=== PATIENT | female | born 1950 | race Caucasian/White ===

== ENCOUNTER 2017-03-25 22:26 | Inpatient (IN) | payer OTHER, BC ==
[~2017-03-25] VITALS: Ht 165.1 cm; Wt 75.3 kg
--- NOTE | ~2017-03-25 | EKG ---
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: FARIDEH : 1950 Requested By: Kaiden Gagnon Order Number: [id number] MD: Mauri Ellis Measurements Intervals [place] Rate: 43 P: DC: QRS: 66 QRSD: 105 T: 47 QT: 420 QTc: 356 Interpretive Statements Probable junctional bradycardia Poor R wave progression Compared to ECG 02/11/2008 18:16:24 Sinus rhythm no longer present Electronically Signed On 03-30-2017 8:49:13 CDT by Mauri Ellis [email or web address] <ELECTRONICALLY SIGNED> By: Mauri Ellis MD, [facility] 03/30/17 0849 31 31 Mauri Ellis MD, FACC /EPI
--- NOTE | ~2017-03-25 | EKG ---
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
--- NOTE | ~2017-03-25 | EKG ---
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: ABAD : 1950 Requested By: Last Bal Order Number: [id number] MD: Mauri Ellis Measurements Intervals [place] Rate: 80 P: 64 IA: 210 QRS: 32 QRSD: 110 T: 36 QT: 375 QTc: 433 Interpretive Statements Sinus rhythm Poor R wave progression Compared to ECG 02/11/2008 18:16:24 Sinus rhythm is replaced probable junctional bradycardia Electronically Signed On 03-30-2017 9:12:02 CDT by Mauri Ellis [email or web address] <ELECTRONICALLY SIGNED> By: Mauri Ellis MD, [facility] 03/30/17 0912 55 Mauri Ellis MD, [facility] /EPI
--- NOTE | ~2017-03-25 | HC ---
[facility] [place] [address] CONSULTATION Name: JEISON PAVON Room #: 203-P [facility] IN .R.#: [id number] Admission: 03/25/17 Attend Phys: Last Bal MD Discharge: Date of : 48 Report #: [id number] THIS REPORT FOR: //name// CC: Haresh Pineda DATE OF SERVICE: 03/30/2017 PERSONAL PHYSICIAN: Gavin Pineda MD CHIEF COMPLAINT: Right axillary wound, status post incision and drainage. HISTORY OF PRESENT ILLNESS: This is a 67-year-old white female who presented through the Emergency Department for increasing shortness of breath and had a history of chronic obstructive pulmonary disease. The patient was also noted at the time to have a cellulitis of her right upper axillary region, which she had been taking outpatient Bactrim. The patient stated that the area started approximately 3-4 days prior to admission to the hospital as a small reddened area, was seen in urgent care and started on the antibiotics. The patient states even with the antibiotics she started having increasing pain, swelling and redness associated in her axillary region. The patient was found to have a large area of cellulitis on a CT scan, was taken to the operating room now x [address] Anne, and we have been asked to assist in the wound care at this time. The patient denies any other associated wounds. Nurses states that they noticed what appeared to be like a moisture-associated dermatitis in her gluteal region. PAST MEDICAL HISTORY: Significant for previous hysterectomy, tonsillectomy, diabetes, chronic obstructive pulmonary disease, prolapsed mitral valve. CURRENT MEDICATIONS: Multiple including IV antibiotics. DRUG ALLERGIES: None. SOCIAL HISTORY: The patient has a history of smoking, but states she thinks she might have quit. The patient is a slightly poor historian in regards to that, though denies alcohol and recreational drug use. FAMILY HISTORY: Not pertinent to current medical condition. REVIEW OF SYSTEMS: CONSTITUTIONAL: The patient denies fevers or chills. NEUROLOGIC: The patient had a generalized weakness on admission and still states she has mild weakness, but denies any isolated weakness in arms or legs. EYES: No complaints. [facility] [address] [place] [address] CONSULTATION Name: JEISON PAVON Room #: 203-P [facility] IN .R.#: [id number] Admission: 03/25/17 Attend Phys: Last Bal MD Discharge: Date of : 48 Report #: [id number] ENT: No complaints. CARDIAC: The patient denies chest pain, palpitations or peripheral edema. RESPIRATORY: The patient has chronic COPD with a chronic cough, nonproductive, with mild shortness of breath on exertion, and occasional wheezing. GASTROINTESTINAL: The patient denies nausea, vomiting or abdominal pain. GENITOURINARY: The patient denies urgency or frequency. MUSCULOSKELETAL: No complaints. SKIN: There is a surgical wound on the right axillary region as well as a moisture-associated dermatitis without open ulcerations in the gluteal region. PHYSICAL EXAMINATION: VITAL SIGNS: Stable. The patient is afebrile. GENERAL: This is an alert and oriented x 2, person and place, but not time, white female who appears to be in no acute distress, is on oxygen. HEENT: Normocephalic, atraumatic. Mucous membranes are somewhat dry. Pupils are round. Sclerae are white. NECK: Shows no JVD or masses. BACK: Nontender. LUNGS: Have scattered wheezes heard throughout. CHEST: Nontender. HEART: Regular with 2/6 systolic ejection murmur. ABDOMEN: Soft, nontender, without organomegaly. EXTREMITIES: The patient moves all extremities without difficulty. Bilateral heels are intact. There is no edema noted to the lower extremities. Distal pulses are intact. Evaluation of right axillary region reveals a 6 x 10 x 3.5 cm surgical wound, which is clean and granulating. There are no signs of any necrotic tissue. There is essentially no odor. There is serosanguineous drainage which is moderate, but once again without odor. Periwound itself is mildly erythematous and moderately tender, but with minimal warmth. There is no fluctuance in the periwound region. Distal neurovascular of the right upper extremity is intact. PELVIC: Evaluation of the gluteal region reveals blanchable erythema in the gluteal and perianal region without associated open ulcerations. NEUROLOGIC: Cranial nerves 2-12 are grossly intact. Motor and sensory grossly intact. LABORATORY DATA: White count 14.6, hemoglobin 8.2. Albumin is low at 2.3. IMPRESSION: 1. Right axillary abscess status post incision and drainage x 2 with methicillin-resistant Staphylococcus aureus positive. 2. Moisture-associated dermatitis in bilateral gluteal area. 3. Chronic obstructive pulmonary disease. 4. Protein-calorie malnutrition -- severe with albumin of 2.3. 5. Generalized debility. 6. Diabetes mellitus. [facility] [address] [place] [address] CONSULTATION Name: JEISON PAVON Room #: 203-P ADM IN M.Tyler.#: [id number] Admission: 03/25/17 Attend Phys: Last Bal MD Discharge: Date of : 48 Report #: [id number] PLAN: At this time, we will stop the wet to dry dressings and start packing the wound with Maxorb Ag and cover this with 4 x 4s and ABD daily. We will continue IV antibiotics per Infectious Disease orders. We will encourage the patient to maximize her oral protein and supplements for healing. We will continue all other current medications. We will continue to follow the patient while she is here. By: 11 01 Oli Simental MD /jhoan
--- NOTE | ~2017-03-25 | 2DMMODE ---
[facility] [address] [place] [address] 2 D/M-MODE ECHOCARDIOGRAM Name: JEISON PAVONN Room #: 203-P [facility] IN [facility].#: [id number] Admission: 03/25/17 Attend Phys: Last Bal MD Discharge: Date of : 48 Date of Service: 03/29/17 1604 Report #: [id number] THIS REPORT FOR: //name// APPROVED REPORT Study performed: 03/29/2017 15:04:59 EXAM: Comprehensive 2D, Doppler, and color-flow Echocardiogram Patient Location: Bedside Room #: 203 Status: routine BSA: 1.85 HR: 69 bpm BP: 154/97 mmHg Other Information Study Quality: Good Indications Diabetes Prem DESAI. 2D Dimensions RVDd: 39.64 mm LVEF(%): 63.47 (>50%) IVSd: 10.16 (7-11mm) LVOT Diam: 20.10 (18-24mm) LVDd: 45.18 mm PWd: 9.69 (7-11mm) Ascending Ao: 27.92 (22-36mm) LVDs: 29.68 (25-40mm) Aortic Root: 25.05 mm IVC: 27.00 mm Zeng's LVEF: 63.47 % Volumes Left Atrial Volume (Systole) Single Plane 4CH: 65.58 mL Single Plane 2CH: 74.09 mL LA ESV Index: 41.00 mL/m2 Aortic Valve AoV Peak Siddharth.: 1.58 m/s AO Peak Gr.: 9.93 mmHg LVOT Max P.51 mmHg LVOT Max V: 1.06 m/s SUNNY Vmax: 2.14 cm2 Mitral Valve E/A Ratio: 2.7 MV Decel. Time: 165.75 ms [facility] [place] [address] 2 D/M-MODE ECHOCARDIOGRAM Name: SAVANAHJEISON JO Room #: 203-P [facility] IN M.R.#: [id number] Admission: 03/25/17 Attend Phys: Last Bal MD Discharge: Date of : 48 Date of Service: 03/29/17 1604 Report #: [id number] MV E Max Siddharth.: 1.40 m/s MV A Siddharth.: 0.52 m/s MV PHT: 48.07 ms IVRT: 73.82 ms Pulmonary Valve PV Peak Siddharth.: 1.01 m/s PV Peak Gr.: 4.10 mmHg Pulmonary Vein P Vein S: 0.40 m/s P Vein A: 0.26 m/s P Vein D: 0.62 m/s P Vein A Dur.: 96.9 msec P Vein S/D Ratio: 0.65 Tricuspid Valve TR Peak Siddharth.: 3.62 m/s RAP Estimate: 10.00 mmHg TR Peak Gr.: 52.34 mmHg PA Pressure: 62.00 mmHg Left Ventricle The left ventricle is normal size. There is mild hypokinesis in the apical wall. There is normal left ventricular wall thickness. The left ventricular systolic function is normal. The left ventricular ejection fraction is within the normal range. LVEF is 50-55%. Right Ventricle The right ventricle is normal size. The right ventricular systolic function is normal. Atria Left atrium is dilated. Right atrium is dilated. Aortic Valve The aortic valve is normal in structure. No aortic regurgitation is present. There is no aortic valvular stenosis. Mitral Valve The mitral valve is normal in structure. Mild to moderate mitral regurgitation. No evidence of mitral valve stenosis. Tricuspid Valve The tricuspid valve is normal in structure. There is mild to moderate tricuspid regurgitation. pa press 60mmhg There is moderate pulmonary hypertension. Pulmonic Valve The pulmonary valve is normal in structure. [place] [address] 2 D/M-MODE ECHOCARDIOGRAM Name: JEISON PAVON Room #: 203-P [facility] IN ..#: [id number] Admission: 03/25/17 Attend Phys: Last Bal MD Discharge: Date of : 48 Date of Service: 03/29/17 1604 Report #: [id number] valvular regurgitation. Great Vessels The aortic root is normal in size. IVC is dilated and collapses <50% with inspiration. Pericardium There is no pericardial effusion. <Conclusion> There is normal left ventricular wall thickness. LVEF is 50-55%. Left atrium is dilated. Right atrium is dilated. The right ventricle is normal size. The aortic valve is normal in structure. Mild to moderate mitral regurgitation. There is mild to moderate tricuspid regurgitation. pa press 60mmhg There is moderate pulmonary hypertension. There is no pericardial effusion. <ELECTRONICALLY SIGNED> By: Wilfred Barry MD, FACC 03/29/17 1604 1604 1604 Wilfred Barry MD, FACC /INF
--- NOTE | ~2017-03-25 | HC ---
[facility] [place] [address] CONSULTATION Name: JEISON PAVON Room #: 203-P ADM IN M.R.#: [id number] Admission: 03/25/17 Attend Phys: Last Bal MD Discharge: Date of : 48 Report #: [id number] THIS REPORT FOR: //name// CC: Haresh Bal [facility] INFECTIOUS DISEASE CONSULTATION DATE OF CONSULTATION: 03/27/2017. ATTENDING PHYSICIAN: Dr. Bal. REASON FOR EVALUATION: Staphylococcus aureus septicemia, likely secondary to skin and soft tissue infection with abscess, right axilla, lateral lower thorax. HISTORY OF PRESENT ILLNESS: Chart reviewed, patient examined. This is a 67-year-old female with diabetes mellitus type 2, also has schizophrenia, detailed history are somewhat unclear, apparently had some dyspnea evening prior to admission, worsening hallucinations and was found to have juncture rhythm, did note inflammatory eruption involving the right axilla as well as the back, evaluation suggested there was a component of abscess, did undergo operative debridement, was found positive culture for Staphylococcus aureus both within the axillary specimen as well as two blood cultures. She does admit to some degree of pain. She is clearly still encephalopathic, has been started on piperacillin, tazobactam as well as vancomycin. ALLERGIES: None known. CURRENT MEDICATIONS: Include Haldol, aspirin, folic acid, fenofibrate, vancomycin, carbamazepine, methylprednisolone, ipratropium, albuterol inhaler, pregabalin, pantoprazole, insulin, p.r.n. analgesics. PAST MEDICAL HISTORY: As described above, diabetes mellitus type 2, history of rheumatoid arthritis, schizophrenia, some coronary artery disease, prolapse mitral valve, previous hysterectomy, tonsillectomy. SOCIAL HISTORY: Does smoked cigarettes, [id number] history. No illicit drug use. FAMILY HISTORY: No ethanol. Family history is noncontributory. REVIEW OF SYSTEMS: As above. PHYSICAL EXAMINATION: GENERAL: She is lethargic with mild to mildly encephalopathic, appears somewhat [facility] [address] [place] [address] CONSULTATION Name: JEISON PAVON Room #: [address] [place] [address] IN M.R.#: [id number] Admission: 03/25/17 Attend Phys: Last Bal MD Discharge: Date of : 48 Report #: [id number] chronically ill, in [id number] distress. VITAL SIGNS: Temperature 98, pulse 80, respirations 17, blood pressure 142/81. SKIN: Warm, dry, no rashes. HEENT: Unremarkable. NECK: Supple. LUNGS: Diminished breath sounds. HEART: Regular, right axilla has a surgical dressing in place, mild tenderness at the margins. ABDOMEN: Soft, nontender, nondistended. EXTREMITIES: No cyanosis. GENITOURINARY AND RECTAL: Deferred. LABORATORY DATA: As described above. Blood cultures with presumptive MRSA. Axillary culture with growth of Staphylococcus aureus. ABGs: pH 7.316, pCO2 of 39.6, pO2 84.4. Lactate of 1.04, that was on 5 liters. CBC: White cell count of 22.6, H and H 9.0 and 26.9, platelets of 388. Sodium 139, potassium , chloride 104, bicarbonate is 22, anion gap of 13. BUN and creatinine 26 and 1.1, that was actually down from 2.5, hepatitis screen was negative. The LFTs on admission did show AST of 371, ALT of 225, total bilirubin of 0.3, albumin of 2.5, total protein 7.2. X-ray showed possible infiltrate, right upper lung. ASSESSMENT: Staphylococcus aureus septicemia is a complication of skin and soft tissue infection with axillary abscess. Continue the vancomycin for presumptive MRSA, there is question of possible pneumonitis as well. She is clearly improved from a renal standpoint, discuss with , increasing the dose of vancomycin better reflect. We will repeat blood cultures as well. <ELECTRONICALLY SIGNED> By: Jorge Dominguez MD 03/27/17 1632 0824 0908 Jorge Dominguez MD /nt
--- NOTE | ~2017-03-25 | S ---
[facility] [place] [address] SURGICAL PATH RPT PROCEDURE Name: JEISON SWENSON Room #: 203-P ADM IN M.R.#: [id number] Admission: 03/25/17 Date of : 48 Discharge: Report #: [id number] Path Case #: [id number] PATHOLOGY REPORT COLLECTION DATE: 03/26/2017 RECEIVED DATE: 03/26/2017 SUBMITTING PHYS: Dr. Haresh Anne, DO OTHER PHYS: Dr. Last Pineda SPECIMEN(S) RECEIVED: A.Right axillary mass * * * * * * * * * * * * FINAL DIAGNOSIS: Right axillary mass, excision: - Consistent with an abscess. - Overlying squamous epithelium showing reactive changes. (IUV:db; 03/29/2017) PATHOLOGIST: Susy Irby M.D. REPORT ELECTRONICALLY SIGNED BY: Susy Irby M.D. DATE/TIME: 03/29/2017 16:37 * * * * * * * * * * * * GROSS PATHOLOGY: Received in formalin, labeled "Umu Swenson, right axillary mass" is an unoriented ellipse of white-alvarez skin and underlying pink yellow lobulated fibroadipose tissue measuring 9.0 x 2.3 cm, and excised to a maximum depth of 3.0 cm. The skin surface is white-alvarez and grossly unremarkable. The specimen is serially sectioned to reveal multiple pink-white soft cystic areas in the deep soft tissue ranging from 0.7-1.6 cm in greatest dimension. A claims customer service representative section of the specimen is submitted in cassette A1. ([facility]; 03/27/2017) CLINICAL HISTORY: Abscess right axilla INITIAL CPT CODE(S): 98117 Professional services performed by [facility] [address] [place] [address] [facility] [address] [place] [address] SURGICAL PATH RPT PROCEDURE Name: JEISON SWENSONN Room #: 203-P ADM IN M.R.#: [id number] Admission: 03/25/17 Date of : 48 Discharge: Report #: [id number] Path Case #: [id number] Technical services performed by [facility] at [address] [place] [address], [address], [place] [address]. [facility] [address] [place] [address] PHONE: [phone] DIRECTOR: Tim Win M.D. * * * END OF REPORT * * *
[~2017-03-25 22:26] MED LIST: AMOXICILLIN 50500 MG PO; ASPIR 8181 MG PO; ATENOLOL 50MG T50 M1 PO; ATORVASTATIN CA40 MG PO; CARBAMAZEPINE200 M2 PO; COMPAZINE10 MG; FENOFIBRATE160 MG PO; FLEXERIL; FOLIC ACID1 MG PO; HALOPERIDOL 2 MG2 M1; IBUPROFEN 800800 M1 PO; IMDUR 30 MG TAB30 M1 PO; LYRICA 75 MG CA75 MG; METFORMIN HCL500 MG PO; NITRO-DUR1 EAC1; NORCO 10-325 T1 EACH PO; NORVASC5 MG PO; OMEPRAZOLE40 MG; PREDNISONE 5 MG5 M1; RESTORIL30 MG PO; TENORMIN50 MG PO; VITAMIN D 5050000 I1 PO; XANAX 0.5 MG0.5 MG PO
[2017-03-25 22:27] VITALS: BP 125/44
[2017-03-25 23:11] LABS: HEMATOCRIT 29.5 % (37.0-47.0); HEMOGLOBIN 9.8 gm/dL (12.0-15.0); MCHC 33.3 g/dL (28.0-37.0); MCV 90.1 fL (80.0-100.0); PLATELET COUNT 375 thou/uL (150-400); RBC 3.27 mil/uL (4.20-5.00); RDW 15.8 % (10.5-14.5)
[2017-03-25 23:17] LABS: MANUAL DIFF YES
[2017-03-25 23:21] LABS: ANION GAP 15 mmol/L (7-16); BUN 50 mg/dL (7-18); CALCIUM 9.6 mg/dL (8.5-10.1); CHLORIDE 92 mmol/L (98-107); CO2 19 mmol/L (21-32); CREATININE 3.1 mg/dL (0.6-1.0); GLUCOSE 125 mg/dL (74-106); POTASSIUM 5.1 mmol/L (3.5-5.1); SODIUM 126 mmol/L (136-145)
[2017-03-25 23:27] LABS: ALBUMIN 2.5 g/dL (3.4-5.0); ALKALINE PHOSPHATASE 70 U/L (46-116); MAGNESIUM 1.9 mg/dL (1.8-2.4); SGOT 371 U/L (15-37); SGPT 225 U/L (30-65); TOTAL BILIRUBIN 0.3 mg/dL (<0.1-1.0); TOTAL PROTEIN 7.2 g/dL (6.4-8.2); TROPONIN-I < 0.04 ng/mL (<0.04-0.07)
[2017-03-25 23:37] LABS: ABG SAMPLE TYPE ARTERIAL; BE(vivo) -9.3 mmol/L (-2 to +3); HCO3 16.6 mmol/L (22.0-26.0); LACTATE 2.43 mmol/L (0.5-2.0); O2(CT) 13.4 mL/dL (15.0-23.0); O2Hb 91.2 % (92.0-98.0); PO2 82.9 mmHg (80.0-100.0); tCO2 17.7 mmol/L (24.0-30.0)
[2017-03-25 23:39] LABS: pH 7.282 (7.360-7.450)
[2017-03-25 23:43] LABS: STICK SITE L.RADIAL
[2017-03-26] VITALS (8 sets, daily range): BP systolic 118–156; BP diastolic 38–90
[2017-03-26 00:13] LABS: URINE BILIRUBIN NEGATIVE (Negative); URINE BLOOD NEGATIVE (Negative); URINE COLOR YELLOW; URINE GLUCOSE-RANDOM* NEGATIVE (Negative); URINE KETONES NEGATIVE (Negative); URINE LEUKOCYTES-REFLEX TRACE (Negative); URINE PROTEIN (DIPSTICK) NEGATIVE (Negative); URINE SPECIFIC GRAVITY 1.015 (1.003-1.035); URINE UROBILINOGEN 0.2 E.U./dl (0.2-1.0)
[2017-03-26 00:21] LABS: AMP/METHAMP Negative (Negative); BARBITURATES Negative (Negative); BENZODIAZEPINES POSITIVE (Negative); COCAINE Negative (Negative); METHADONE Negative (Negative); OPIATES POSITIVE (Negative); PCP Negative (Negative); THC Negative (Negative)
[2017-03-26 00:56] LABS: ABSOLUTE NEUTROPHILS 21.2 thou/uL (1.4-8.2); ANISOCYTOSIS SLIGHT; TOTAL CELL COUNT 100
[2017-03-26] MEDS ORDERED: PREDNISONE 5 MG5 M1 PO (03:42)
[2017-03-26] MEDS ORDERED: LASIX 20 MG TAB20 MG PO (03:48)
[2017-03-26 06:43] LABS: HEMATOCRIT 28.2 % (37.0-47.0); HEMOGLOBIN 9.6 gm/dL (12.0-15.0); MCH 30.7 pg (26.0-34.0); MCHC 33.9 g/dL (28.0-37.0); MCV 90.5 fL (80.0-100.0); RBC 3.12 mil/uL (4.20-5.00); RDW 15.9 % (10.5-14.5); WBC 26.3 thou/uL (4.0-11.0)
[2017-03-26 06:52] LABS: CALCIUM 8.4 mg/dL (8.5-10.1); CREATININE 2.5 mg/dL (0.6-1.0); POTASSIUM 4.6 mmol/L (3.5-5.1)
[2017-03-26 09:35] LABS: APTT 26.8 Seconds (24.5-32.8); INR 1.1; PROTIME 11.4 Seconds (9.3-11.4)
[2017-03-26 10:02] LABS: % SATURATION 11 % (20-39); IRON 28 ug/dL (50-170); TIBC 252 ug/dL (250-450); UIBC 224 ug/dL
[2017-03-26 21:07] LABS: HEPATITIS C VIRUS AB <0.1 (0.0-0.9)
[2017-03-27 03:58] VITALS: BP 154/69
[2017-03-27 04:20] LABS: HEMATOCRIT 26.9 % (37.0-47.0); MCH 29.7 pg (26.0-34.0); MCHC 33.5 g/dL (28.0-37.0); MCV 88.6 fL (80.0-100.0); RBC 3.03 mil/uL (4.20-5.00); RDW 15.9 % (10.5-14.5); WBC 22.6 thou/uL (4.0-11.0)
[2017-03-27 04:31] LABS: CALCIUM 8.7 mg/dL (8.5-10.1); POTASSIUM 3.8 mmol/L (3.5-5.1)
[2017-03-27 04:34] LABS: CREATININE 1.1 mg/dL (0.6-1.0)
[2017-03-27 05:22] LABS: ABG SAMPLE TYPE ARTERIAL; BE(vivo) -5.9 mmol/L (-2 to +3); HCO3 19.8 mmol/L (22.0-26.0); LACTATE 1.04 mmol/L (0.5-2.0); O2(CT) 15.2 mL/dL (15.0-23.0); O2Hb 93.7 % (92.0-98.0); PCO2 39.6 mmHg (35.0-45.0); PO2 84.4 mmHg (80.0-100.0); sO2 95.6 % (92.0-98.0)
[2017-03-27 05:23] LABS: STICK SITE RRA
[2017-03-27 05:25] LABS: pH 7.316 (7.360-7.450)
[2017-03-27 07:07] VITALS: BP 142/81
[2017-03-27 12:05] VITALS: BP 166/78
[2017-03-27 15:28] VITALS: BP 168/81
[2017-03-27 19:55] VITALS: BP 150/66
[2017-03-28 04:29] LABS: HEMOGLOBIN 8.2 gm/dL (12.0-15.0); MCH 30.1 pg (26.0-34.0); MCHC 33.9 g/dL (28.0-37.0); MCV 88.6 fL (80.0-100.0); RBC 2.71 mil/uL (4.20-5.00); RDW 15.8 % (10.5-14.5); WBC 19.4 thou/uL (4.0-11.0)
[2017-03-28 04:47] LABS: CALCIUM 8.6 mg/dL (8.5-10.1); CREATININE 0.7 mg/dL (0.6-1.0); POTASSIUM 3.3 mmol/L (3.5-5.1)
[2017-03-28 04:51] VITALS: BP 167/81
[2017-03-28 07:31] VITALS: BP 171/84
[2017-03-28 11:49] VITALS: BP 156/74
[2017-03-28 16:22] VITALS: BP 152/70
[2017-03-28 19:31] VITALS: BP 165/90
[2017-03-29 02:54] LABS: HEMATOCRIT 25.4 % (37.0-47.0); HEMOGLOBIN 8.8 gm/dL (12.0-15.0); MCH 30.3 pg (26.0-34.0); MCHC 34.5 g/dL (28.0-37.0); MCV 87.9 fL (80.0-100.0); RBC 2.89 mil/uL (4.20-5.00); RDW 15.8 % (10.5-14.5); WBC 15.5 thou/uL (4.0-11.0)
[2017-03-29 02:59] VITALS: BP 170/95
[2017-03-29 03:01] LABS: CALCIUM 8.6 mg/dL (8.5-10.1); CREATININE 0.6 mg/dL (0.6-1.0); POTASSIUM 3.3 mmol/L (3.5-5.1)
[2017-03-29 07:28] VITALS: BP 154/92
[2017-03-29 12:15] VITALS: BP 150/84
[2017-03-29 19:41] VITALS: BP 156/80
[2017-03-29 23:38] VITALS: BP 184/98
[2017-03-30 03:47] VITALS: BP 162/78
[2017-03-30 07:36] VITALS: BP 168/95
[2017-03-30 10:14] LABS: HEMATOCRIT 23.9 % (37.0-47.0); HEMOGLOBIN 8.2 gm/dL (12.0-15.0); MCH 30.1 pg (26.0-34.0); MCHC 34.2 g/dL (28.0-37.0); RBC 2.72 mil/uL (4.20-5.00); WBC 14.6 thou/uL (4.0-11.0)
[2017-03-30 12:29] VITALS: BP 144/77
[2017-03-30 20:40] VITALS: BP 115/73; BP 115/731
[2017-03-31] VITALS (7 sets, daily range): BP systolic 160–169; BP diastolic 80–88
[2017-03-31 04:06] LABS: HEMATOCRIT 25.9 % (37.0-47.0); HEMOGLOBIN 8.6 gm/dL (12.0-15.0); MCH 29.7 pg (26.0-34.0); MCHC 33.3 g/dL (28.0-37.0); RBC 2.91 mil/uL (4.20-5.00); RDW 16.2 % (10.5-14.5); WBC 14.7 thou/uL (4.0-11.0)
[2017-03-31 04:14] LABS: CALCIUM 8.3 mg/dL (8.5-10.1); CREATININE 0.5 mg/dL (0.6-1.0); POTASSIUM 3.2 mmol/L (3.5-5.1)
[2017-04-01] VITALS (8 sets, daily range): BP systolic 135–181; BP diastolic 86–94
[2017-04-01 07:00] LABS: MAGNESIUM 1.2 mg/dL (1.8-2.4); POTASSIUM 3.8 mmol/L (3.5-5.1)
[2017-04-01] MEDS ORDERED: MUCINEX TA600 MG/TA1 PO (10:01)
== END 2017-04-01 13:50 | disposition home health service (06) | DRG 853 ==
LOC: ER 22:26 → EROBS 23:38 → 2N 23:38
PROVIDERS: Emergency Medicine; Hospitalist; Nurse Practitioner Acute Care; Surgery
PROC: 0JB60ZZ Excision of Chest Subcutaneous Tissue and Fascia, Open Approach (ICD-10-PCS; principal; 2017-03-26)
DX: A41.02 Sepsis due to Methicillin resistant Staphylococcus aureus (principal); J18.9 Pneumonia, unspecified organism; E43 Unspecified severe protein-calorie malnutrition; G92 Toxic encephalopathy; L02.411 Cutaneous abscess of right axilla; N17.9 Acute kidney failure, unspecified; E87.1 Hypo-osmolality and hyponatremia; J44.0 Chronic obstructive pulmonary disease with (acute) lower respiratory infection; L03.111 Cellulitis of right axilla; F17.210 Nicotine dependence, cigarettes, uncomplicated; D64.9 Anemia, unspecified; D89.9 Disorder involving the immune mechanism, unspecified; R74.0 Nonspecific elevation of levels of transaminase and lactic acid dehydrogenase [LDH]; I25.10 Atherosclerotic heart disease of native coronary artery without angina pectoris; M06.9 Rheumatoid arthritis, unspecified; E11.620 Type 2 diabetes mellitus with diabetic dermatitis; K21.9 Gastro-esophageal reflux disease without esophagitis; I10 Essential (primary) hypertension; F20.9 Schizophrenia, unspecified; T44.7X1A Poisoning by beta-adrenoreceptor antagonists, accidental (unintentional), initial encounter; Y92.89 Other specified places as the place of occurrence of the external cause; Z90.710 Acquired absence of both cervix and uterus; Z68.23 Body mass index [BMI] 23.0-23.9, adult; Z82.49 Family history of ischemic heart disease and other diseases of the circulatory system; Z80.9 Family history of malignant neoplasm, unspecified; Z79.52 Long term (current) use of systemic steroids
CPT/HCPCS: 10081; 27000; 50010; 50101; 50386; 50403; 53078; 56639; 62110; 62900; 70005

== ENCOUNTER → 2017-04-02 | Outpatient (CLI) | payer OTHER, BC ==
[~2017-04-02] MED LIST changes: +LASIX 20 MG TAB20 MG PO; +MUCINEX TA600 MG/TA1 PO; +PREDNISONE 5 MG5 M1 PO
[2017-04-02 12:15] VITALS: BP 124/57
== END ==
LOC: OPONC 07:48
DX: L02.213 Cutaneous abscess of chest wall (principal)
CPT/HCPCS: 95000

== ENCOUNTER → 2017-04-03 | Outpatient (CLI) | payer OTHER, BC | LOC: OPONC 04:27 | DX: L02.213 Cutaneous abscess of chest wall (principal) | CPT/HCPCS: 95000 ==

== ENCOUNTER → 2017-04-06 | Outpatient (CLI) | payer OTHER, BC ==
[2017-04-06 10:11] LABS: HEMATOCRIT 26.5 % (37.0-47.0); HEMOGLOBIN 8.7 gm/dL (12.0-15.0); MCH 29.8 pg (26.0-34.0); MCV 90.2 fL (80.0-100.0); RBC 2.93 mil/uL (4.20-5.00); WBC 13.1 thou/uL (4.0-11.0)
[2017-04-06 10:25] LABS: ALBUMIN 2.4 g/dL (3.4-5.0); CREATININE 1.1 mg/dL (0.6-1.0); POTASSIUM 3.7 mmol/L (3.5-5.1); TOTAL BILIRUBIN 0.2 mg/dL (<0.1-1.0); TOTAL PROTEIN 6.3 g/dL (6.4-8.2)
[2017-04-06 11:00] VITALS: BP 110/61
== END ==
LOC: OPONC 08:00
PROVIDERS: Specialist
DX: L02.213 Cutaneous abscess of chest wall (principal); B95.62 Methicillin resistant Staphylococcus aureus infection as the cause of diseases classified elsewhere
CPT/HCPCS: 95000

== ENCOUNTER → 2017-04-07 | Outpatient (CLI) | payer OTHER, BC ==
[2017-04-07 09:50] VITALS: BP 106/58
== END ==
LOC: OPONC 08:41
DX: L02.213 Cutaneous abscess of chest wall (principal); A49.02 Methicillin resistant Staphylococcus aureus infection, unspecified site
CPT/HCPCS: 95000

== ENCOUNTER → 2017-04-07 | Outpatient (CLI) | payer OTHER, BC | LOC: HYPER 06:52 | DX: T81.89XD Other complications of procedures, not elsewhere classified, subsequent encounter (principal); L02.411 Cutaneous abscess of right axilla; R00.1 Bradycardia, unspecified; J44.9 Chronic obstructive pulmonary disease, unspecified; E11.42 Type 2 diabetes mellitus with diabetic polyneuropathy; I10 Essential (primary) hypertension; K21.9 Gastro-esophageal reflux disease without esophagitis; I25.10 Atherosclerotic heart disease of native coronary artery without angina pectoris; M06.9 Rheumatoid arthritis, unspecified; F17.210 Nicotine dependence, cigarettes, uncomplicated; Z90.710 Acquired absence of both cervix and uterus; Y83.8 Other surgical procedures as the cause of abnormal reaction of the patient, or of later complication, without mention of misadventure at the time of the procedure ==

== ENCOUNTER → 2017-04-08 | Outpatient (CLI) | payer OTHER, BC ==
[2017-04-08 13:14] VITALS: BP 117/64
== END ==
LOC: OPONC 08:20
DX: L02.213 Cutaneous abscess of chest wall (principal); A49.02 Methicillin resistant Staphylococcus aureus infection, unspecified site
CPT/HCPCS: 95000

== ENCOUNTER → 2017-04-09 | Outpatient (CLI) | payer OTHER, BC ==
[2017-04-09 10:00] VITALS: BP 113/63
== END ==
LOC: OPONC 07:47
DX: L02.213 Cutaneous abscess of chest wall (principal); B95.62 Methicillin resistant Staphylococcus aureus infection as the cause of diseases classified elsewhere
CPT/HCPCS: 95000

== ENCOUNTER → 2017-04-10 | Outpatient (CLI) | payer OTHER, BC | LOC: OPONC 06:25 | DX: L02.213 Cutaneous abscess of chest wall (principal); B95.62 Methicillin resistant Staphylococcus aureus infection as the cause of diseases classified elsewhere | CPT/HCPCS: 95000 ==

== ENCOUNTER → 2017-04-11 | Outpatient (CLI) | payer OTHER, BC | LOC: OPONC 06:27 | DX: L02.213 Cutaneous abscess of chest wall (principal); B95.62 Methicillin resistant Staphylococcus aureus infection as the cause of diseases classified elsewhere | CPT/HCPCS: 95000 ==

== ENCOUNTER → 2017-04-12 | Outpatient (CLI) | payer OTHER, BC ==
[2017-04-12 14:10] VITALS: BP 118/63
== END ==
LOC: OPONC 08:28
DX: L02.213 Cutaneous abscess of chest wall (principal); B95.62 Methicillin resistant Staphylococcus aureus infection as the cause of diseases classified elsewhere
CPT/HCPCS: 95000

== ENCOUNTER → 2017-04-13 | Outpatient (CLI) | payer OTHER, BC ==
[2017-04-13 09:45] VITALS: BP 129/72
[2017-04-13 10:02] LABS: HEMATOCRIT 27.3 % (37.0-47.0); HEMOGLOBIN 9.1 gm/dL (12.0-15.0); MCH 30.4 pg (26.0-34.0); MCHC 33.5 g/dL (28.0-37.0); MCV 90.7 fL (80.0-100.0); RBC 3.01 mil/uL (4.20-5.00); RDW 16.9 % (10.5-14.5); WBC 11.8 thou/uL (4.0-11.0)
[2017-04-13 10:14] LABS: % SATURATION 14 % (20-39); ALBUMIN 2.8 g/dL (3.4-5.0); ALKALINE PHOSPHATASE 45 U/L (46-116); ANION GAP 8 mmol/L (7-16); BUN 21 mg/dL (7-18); CHLORIDE 102 mmol/L (98-107); CHOLESTEROL 126 mg/dL (<200); CO2 25 mmol/L (21-32); CREATININE 0.9 mg/dL (0.6-1.0); GLUCOSE 97 mg/dL (74-106); HDL CHOLESTEROL 48 mg/dL (>40); IRON 59 ug/dL (50-170); LDL CHOLESTEROL 58 mg/dL (<100); POTASSIUM 4.6 mmol/L (3.5-5.1); SGOT 27 U/L (15-37); SGPT 27 U/L (30-65); SODIUM 135 mmol/L (136-145); TC:HDL 2.6 Ratio (Not establshd); TIBC 416 ug/dL (250-450); TOTAL BILIRUBIN 0.3 mg/dL (<0.1-1.0); TOTAL PROTEIN 6.6 g/dL (6.4-8.2); TRIGLYCERIDE 101 mg/dL (<150); UIBC 357 ug/dL; VLDL 20 mg/dL (<40)
[2017-04-14 04:12] LABS: GLYCOHEMOGLOBIN (HGB A1C) 5.7 % (4.8-5.6)
== END ==
LOC: OPONC 08:07
PROVIDERS: Internal Medicine Rheumatology
DX: L02.213 Cutaneous abscess of chest wall (principal); B95.62 Methicillin resistant Staphylococcus aureus infection as the cause of diseases classified elsewhere
CPT/HCPCS: 95000

== ENCOUNTER → 2017-04-14 | Outpatient (CLI) | payer OTHER, BC ==
[2017-04-14 10:00] VITALS: BP 106/50
== END ==
LOC: OPONC 07:03
DX: L02.213 Cutaneous abscess of chest wall (principal); A49.02 Methicillin resistant Staphylococcus aureus infection, unspecified site
CPT/HCPCS: 95000

== ENCOUNTER → 2017-04-15 | Outpatient (CLI) | payer OTHER, BC ==
[2017-04-15 09:45] VITALS: BP 102/54
[2017-04-15 10:45] VITALS: BP 94/48
== END ==
LOC: OPONC 06:24
DX: D50.9 Iron deficiency anemia, unspecified (principal)
CPT/HCPCS: 95000

== ENCOUNTER → 2017-04-16 | Outpatient (CLI) | payer OTHER, BC ==
[~2017-04-16] MED LIST changes: +BACTRIM DS TAB1 EACH PO
[2017-04-16 11:46] VITALS: BP 93/47
== END ==
LOC: OPONC 06:29
DX: L02.213 Cutaneous abscess of chest wall (principal); B95.62 Methicillin resistant Staphylococcus aureus infection as the cause of diseases classified elsewhere
CPT/HCPCS: 95000

== ENCOUNTER → 2017-04-17 | Outpatient (CLI) | payer OTHER, BC | LOC: OPONC | DX: L02.213 Cutaneous abscess of chest wall (principal); B95.62 Methicillin resistant Staphylococcus aureus infection as the cause of diseases classified elsewhere | CPT/HCPCS: 95000 ==

== ENCOUNTER → 2017-04-18 | Outpatient (CLI) | payer OTHER, BC | LOC: OPONC | DX: L02.213 Cutaneous abscess of chest wall (principal); B95.62 Methicillin resistant Staphylococcus aureus infection as the cause of diseases classified elsewhere | CPT/HCPCS: 95000 ==

== ENCOUNTER → 2017-04-20 | Outpatient (CLI) | payer OTHER, BC ==
[2017-04-20 12:05] VITALS: BP 114/65
[2017-04-20 12:22] LABS: HEMATOCRIT 26.6 % (37.0-47.0); HEMOGLOBIN 9.1 gm/dL (12.0-15.0); MCH 30.9 pg (26.0-34.0); MCHC 34.2 g/dL (28.0-37.0); MCV 90.3 fL (80.0-100.0); RBC 2.95 mil/uL (4.20-5.00); RDW 17.1 % (10.5-14.5); WBC 13.6 thou/uL (4.0-11.0)
[2017-04-20 12:37] LABS: ALBUMIN 2.7 g/dL (3.4-5.0); CALCIUM 9.2 mg/dL (8.5-10.1); POTASSIUM 4.5 mmol/L (3.5-5.1); TOTAL BILIRUBIN 0.2 mg/dL (<0.1-1.0)
[2017-04-20 13:25] VITALS: BP 129/66
== END ==
LOC: OPONC
PROVIDERS: Specialist
DX: L02.213 Cutaneous abscess of chest wall (principal); B95.62 Methicillin resistant Staphylococcus aureus infection as the cause of diseases classified elsewhere
CPT/HCPCS: 95000

== ENCOUNTER → 2017-04-20 | Outpatient (CLI) | payer OTHER, BC | LOC: HYPER | DX: T81.89XA Other complications of procedures, not elsewhere classified, initial encounter (principal); R00.1 Bradycardia, unspecified; J44.9 Chronic obstructive pulmonary disease, unspecified; D50.8 Other iron deficiency anemias; I10 Essential (primary) hypertension; F20.9 Schizophrenia, unspecified; K21.9 Gastro-esophageal reflux disease without esophagitis; I25.10 Atherosclerotic heart disease of native coronary artery without angina pectoris; M06.9 Rheumatoid arthritis, unspecified; M19.90 Unspecified osteoarthritis, unspecified site; Z87.01 Personal history of pneumonia (recurrent); F17.210 Nicotine dependence, cigarettes, uncomplicated; Y92.89 Other specified places as the place of occurrence of the external cause; Y83.8 Other surgical procedures as the cause of abnormal reaction of the patient, or of later complication, without mention of misadventure at the time of the procedure ==

== ENCOUNTER → 2017-04-21 | Outpatient (CLI) | payer OTHER, BC ==
[2017-04-21 08:10] VITALS: BP 93/50
[2017-04-21 09:57] LABS: URINE BILIRUBIN NEGATIVE (Negative); URINE BLOOD NEGATIVE (Negative); URINE COLOR YELLOW; URINE GLUCOSE-RANDOM* NEGATIVE (Negative); URINE KETONES NEGATIVE (Negative); URINE PROTEIN (DIPSTICK) NEGATIVE (Negative); URINE UROBILINOGEN 0.2 E.U./dl (0.2-1.0)
[2017-04-21 10:02] LABS: URINE LEUKOCYTES-REFLEX 2+ (Negative)
[2017-04-21 10:14] LABS: CASTS None Seen /LPF (None Seen); SQUAMOUS None Seen /LPF (0-3); URINE WBC-REFLEX >25 Many /HPF (0-5)
[2017-04-21 10:15] LABS: CRYSTALS None Seen /LPF (None Seen); URINE RBC None Seen /HPF (0-2)
== END ==
LOC: OPONC
PROVIDERS: Specialist
DX: L02.213 Cutaneous abscess of chest wall (principal); B95.62 Methicillin resistant Staphylococcus aureus infection as the cause of diseases classified elsewhere
CPT/HCPCS: 95000

== ENCOUNTER → 2017-04-22 | Outpatient (CLI) | payer OTHER, BC ==
[2017-04-22 12:45] VITALS: BP 113/53
== END ==
LOC: OPONC 01:47
DX: A49.02 Methicillin resistant Staphylococcus aureus infection, unspecified site (principal); L02.213 Cutaneous abscess of chest wall
CPT/HCPCS: 95000

== ENCOUNTER → 2017-04-23 | Outpatient (CLI) | payer OTHER, BC ==
[2017-04-23 14:37] VITALS: BP 111/56
== END ==
LOC: OPONC 03:34 → NUC 14:44 → OPONC 14:54
DX: A49.02 Methicillin resistant Staphylococcus aureus infection, unspecified site (principal); L02.213 Cutaneous abscess of chest wall
CPT/HCPCS: 95000

== ENCOUNTER → 2017-04-24 | Outpatient (CLI) | payer OTHER, BC | LOC: OPONC 05:02 | DX: A49.02 Methicillin resistant Staphylococcus aureus infection, unspecified site (principal); L02.213 Cutaneous abscess of chest wall | CPT/HCPCS: 95000 ==

== ENCOUNTER → 2017-04-25 | Outpatient (CLI) | payer OTHER, BC | LOC: OPONC 05:05 | DX: A49.02 Methicillin resistant Staphylococcus aureus infection, unspecified site (principal); L02.213 Cutaneous abscess of chest wall | CPT/HCPCS: 95000 ==

== ENCOUNTER → 2017-04-28 | Outpatient (CLI) | payer OTHER, BC ==
[2017-04-28 09:05] VITALS: BP 98/53
[2017-04-28 09:25] LABS: HEMATOCRIT 27.7 % (37.0-47.0); HEMOGLOBIN 9.5 gm/dL (12.0-15.0); MCH 31.3 pg (26.0-34.0); MCHC 34.5 g/dL (28.0-37.0); MCV 90.8 fL (80.0-100.0); PLATELET COUNT 369 thou/uL (150-400); RBC 3.05 mil/uL (4.20-5.00); RDW 17.1 % (10.5-14.5); WBC 12.6 thou/uL (4.0-11.0)
[2017-04-28 09:27] LABS: MANUAL DIFF YES
[2017-04-28 09:41] LABS: ALBUMIN 2.8 g/dL (3.4-5.0); CALCIUM 8.9 mg/dL (8.5-10.1); CREATININE 1.2 mg/dL (0.6-1.0); POTASSIUM 4.5 mmol/L (3.5-5.1); TOTAL BILIRUBIN 0.2 mg/dL (<0.1-1.0); TOTAL PROTEIN 6.7 g/dL (6.4-8.2)
[2017-04-28 09:50] LABS: ABSOLUTE NEUTROPHILS 11.2 thou/uL (1.4-8.2); PLATELET ESTIMATE NORMAL; TOTAL CELL COUNT 100
== END ==
LOC: OPONC 04-27 00:25
PROVIDERS: Specialist
DX: A49.02 Methicillin resistant Staphylococcus aureus infection, unspecified site (principal); L02.213 Cutaneous abscess of chest wall
CPT/HCPCS: 95000

== ENCOUNTER 2017-04-30 12:34 | Inpatient (IN) | payer OTHER, BC ==
[~2017-04-30] VITALS: Ht 165.1 cm; Wt 74.6 kg
--- NOTE | ~2017-04-30 | HC ---
[facility] [place] [address] CONSULTATION Name: JEISON PAVON Room #: 406-P [facility] IN ..#: [id number] Admission: 04/30/17 Attend Phys: Allie Long MD Discharge: 05/04/17 Date of : 48 Report #: [id number] THIS REPORT FOR: //name// CC: Gavin Lnog DATE OF SERVICE: 05/03/2017 CHIEF COMPLAINT: Axillary surgical wound. HISTORY OF PRESENT ILLNESS: This is a 67-year-old female patient who has been recently readmitted to the hospital. She is familiar to me from previous hospitalization as well as from the outpatient setting with a surgical wound to her right axillary region following incision and drainage of abscess. She is admitted with severe right hip pain that she believes is related to sciatica. She states that that is feeling better and she is starting to be able to move about in her room. PAST MEDICAL HISTORY: Positive for history of ankylosing spondylitis, history of a right axillary abscess and MRSA bacteremia, mitral valve prolapse, type 2 diabetes mellitus, IgG deficiency, spinal stenosis, schizophrenia, gastroesophageal reflux disease and coronary artery disease. MEDICATIONS: Reviewed including prednisone, atenolol, alprazolam, ibuprofen, aspirin, folic acid, amlodipine, fenofibrate, atorvastatin, Isordil, pantoprazole, nicotine patch. FAMILY HISTORY: Noncontributory. SOCIAL HISTORY: The patient does smoke cigarettes. No alcohol use. REVIEW OF SYSTEMS: CONSTITUTIONAL: Denies fever, chills, weight loss. NEUROLOGICAL: The patient does have ____ sciatic type pain in her right hip region. She denies focal weakness, numbness, tingling. EYES: The patient denies visual changes, redness or drainage. ENT: The patient denies earache, nasal drainage, sore throat. CARDIOVASCULAR: The patient denies chest pain or palpitations. PULMONARY: The patient denies cough or shortness of breath. GASTROINTESTINAL: The patient denies nausea, abdominal pain. ORTHOPEDIC: The patient does complain of pain in her right hip. She also notes a surgical wound on her right axillary region that is minimally painful at this time. Other systems and 12-point review of systems are negative. PHYSICAL EXAMINATION: VITAL SIGNS: At this time include pulse rate 67, blood pressure 145/64, [facility] [address] [place] [address] CONSULTATION Name: JEISON PAVON Room #: [address] [place] [address] IN M.R.#: [id number] Admission: 04/30/17 Attend Phys: Allie Long MD Discharge: 05/04/17 Date of : 48 Report #: [id number] temperature 97.9. GENERAL: This is a chronically ill-appearing female. The patient appears in minimal distress. HEENT: Head is normocephalic. Nose and throat clear. NECK: Supple. LUNGS: Clear. ABDOMEN: Soft. Bowel sounds present. EXTREMITIES: Examination of the axillary region done on the right side demonstrates a surgical wound that is clean, granulating and is much improved since I last saw her approximately 2 weeks ago. CLINICAL IMPRESSION: 1. Surgical wound to the right axillary region, status post incision and drainage, much improved. 2. Type 2 diabetes mellitus. 3. Right hip pain. RECOMMENDATIONS: At this point in time, we will recommend silver alginate and gauze packing to the right axillary region to be changed on a daily basis. I think this will go on to continue to granulate on its own. I appreciate being asked to see her in consultation. <ELECTRONICALLY SIGNED> By: Juanito Zheng MD 05/05/17 1419 1702 0226 Juanito Zheng MD /nt
--- NOTE | ~2017-04-30 | HC ---
[facility] [place] [address] CONSULTATION Name: JEISON PAVON Room #: 406-P ADM IN M.R.#: [id number] Admission: 04/30/17 Attend Phys: Allie Long MD Discharge: Date of : 48 Report #: [id number] THIS REPORT FOR: //name// CC: Gavin Long DATE OF SERVICE: 04/30/2017 REASON FOR CONSULTATION: I was asked to evaluate concerning methicillin-resistant Staphylococcus aureus bacteremia with chest wound and now acute back pain. HISTORY OF PRESENT ILLNESS: The patient was a 67-year-old, hospitalized last month with a high-grade Staphylococcus aureus bacteremia identified on 03/25/2017 through the . Blood cultures cleared on 03/29/2017. She also had a large chest wall abscess. This required incision and drainage. She continues outpatient daptomycin and wound care. Overall, had been doing reasonably well, although her white count remained elevated between 12 and 13 range. She developed a urinary tract infection with E. coli that was treated with Bactrim. Earlier this week had acute onset of back pain with radicular features down the right leg. She felt this occurred after she twisted in the kitchen. No fever, chills or sweats. No change in bowel or bladder. Pain shoots down her right leg. Because of this, she missed several outpatient infusion treatments. She should be at 4 weeks of treatment, but missed approximately 5 treatments over the last week. Because she was unable to get out of her house because the pain, she presents to the Emergency Room for further evaluation. Hemodynamically is stable. She has had no fever. MRI scan shows evidence of spinal stenosis at L4-L5, which is severe. No evidence of vertebral osteomyelitis or diskitis. Her sedimentation rate is still elevated at 57. ALLERGIES: None known. MEDICATIONS: As noted on her MAR including daptomycin. She finished her course of Bactrim 2 days ago. PAST MEDICAL HISTORY, FAMILY HISTORY AND SOCIAL HISTORY: Unchanged from her previous consultation. REVIEW OF SYSTEMS: Noted above. PHYSICAL EXAMINATION: VITAL SIGNS: Afebrile, hemodynamically stable. GENERAL: Alert and cooperative. HEENT: Unremarkable. NECK: Supple. [facility] [address] [place] [address] CONSULTATION Name: JEISON PAVON Room #: 406-P [facility] IN M.R.#: [id number] Admission: 04/30/17 Attend Phys: Allie Long MD Discharge: Date of : 48 Report #: [id number] LUNGS: Clear. HEART: Regular, without murmur. ABDOMEN: Soft and nontender. MUSCULOSKELETAL: Mild tenderness to percussion in the lower lumbar spine region. Right chest wall wound in the axillary region had a moderate amount of drainage, had good granulation tissue and has improved significantly over the past 2 weeks. NEUROLOGICAL: Lower extremity strength unremarkable. Deep tendon reflexes normal in the knees, -2 in the ankles. Sensation diminished in the toes bilaterally, more consistent with peripheral neuropathy change, does not appear acute. IMPRESSION: A 67-year-old with high-grade Staphylococcus aureus bacteremia. Now 4 weeks into her treatment course with acute onset of radicular pain and findings of spinal stenosis at L4-L5. Her echocardiogram had revealed mild to moderate mitral regurgitation with no evidence of valvular vegetation. Thus far no evidence of diskitis or vertebral osteomyelitis. Recent urinary tract infection. Recommend continuing to daptomycin. Recheck urinalysis and urine culture. Treat lumbar stenosis. May need to look into acute rehabilitation stay to complete her course of antibiotics. Initially was planning a 4-week course of treatment, but with the interrupted dosing will go 6 weeks. <ELECTRONICALLY SIGNED> By: Kaiden Garcia MD 05/03/17 0728 09 1903 Kaiden Garcia MD /nt
--- NOTE | ~2017-04-30 | HC ---
[facility] [place] [address] CONSULTATION Name: JEISON PAVON Room #: 406-P ADM IN M.R.#: [id number] Admission: 04/30/17 Attend Phys: Allie Long MD Discharge: Date of : 48 Report #: [id number] THIS REPORT FOR: //name// CC: Gavin Long DATE OF SERVICE: 05/03/2017 HISTORY OF PRESENT ILLNESS: The patient is a 67-year-old female with a right axillary abscess, MRSA bacteremia, discharged approximately 1 month ago with home IV antibiotics. She also has a history of ankylosing spondylitis. The patient was noted to have worsening right hip pain and had difficulty ambulating and actually missed a week of IV antibiotics. She is being readmitted to [facility]. She also has IgG deficiency. She is being followed closely by Infectious Disease as well as Hematology. X-rays of the right femur were unremarkable. Lumbar spine MRI shows the severe spinal stenosis at L4-L5. She is on prednisone with a tapering dose. She is on the IV antibiotics as per Infectious Disease. We are seeing her in rehabilitation medicine consultation. PAST MEDICAL HISTORY: Includes ankylosing spondylitis, diabetes mellitus, IgG deficiency, spinal stenosis. There is noted history of schizophrenia, GERD, coronary artery disease, mitral valve prolapse, diabetes mellitus type 2 mild, treated with metformin. MEDICATIONS: Please see the full medication listing. SOCIAL HISTORY: Lives in a house with her . She is a premorbid walker ambulator. There are 6 steps in with 6 inside. Her just had neck surgery over at [facility] and is currently on the rehab sutton there at [facility]. According to the patient, the neurosurgeon does not desire for the to be with the patient in the short run with her prior history of MRSA. REVIEW OF SYSTEMS: Did not offer any current complaints of chest pain, shortness of breath or abdominal discomfort. She has some axillary discomfort as expected. She has some chronic low back pain with her ankylosing spondylitis. No other focal extremity pain complaints. PHYSICAL EXAMINATION: GENERAL: A 67-year-old white female in no obvious distress. VITAL SIGNS: Last recorded temperature is 97.9, pulse 67, respirations 20, blood pressure 145/64. HEENT: Facies appeared symmetric. EXTREMITIES: Functional range of motion of the upper extremities, strength is grade 4-/5. DTRs are trace to 1. She does have the axillary area, which is dressed. Lower extremities, no focal calf swelling. Functional range of motion with strength grade 4- to 3+/5. DTRs are trace to 1. She is contact guard with [address] [address] CONSULTATION Name: JEISON PAVON Room #: 406-P [facility] IN M.R.#: [id number] Admission: 04/30/17 Attend Phys: Allie Long MD Discharge: Date of : 49 Report #: [id number] sit to stand. Gait 100 feet front-wheeled walker, contact guard, limited secondary to the low back pain. ASSESSMENT: A 67-year-old white female with the following problem list: 1. Medical complexity with generalized debilitation. 2. Ankylosing spondylitis. 3. Right axillary abscess with MRSA bacteremia. 4. Severe lumbar spinal stenosis. 5. IgG deficiency. 6. Schizophrenia. 7. Diabetes mellitus type 2. PLAN: Occupational therapy orders are added. We are assessing her regarding a possible acute inpatient [facility] rehabilitation stay. We will be glad to follow along with you regarding her rehab therapy needs. By: [id number] Marco Antonio Kolb MD /[facility]
--- NOTE | ~2017-04-30 | H ---
[facility] [place] [address] HISTORY AND PHYSICAL Name: JEISON PAVON Room #: 406-P ADM IN M.R.#: [id number] Admission: 04/30/17 Attend Phys: Allie Long MD Discharge: Date of : 48 Report #: [id number] THIS REPORT FOR: //name// CC: Gavin Long DATE OF SERVICE: 04/30/2017 CHIEF COMPLAINT: Severe right hip pain. HISTORY OF PRESENT ILLNESS: The patient is a 67-year-old female who was hospitalized here about a month ago for right axillary abscess, and MRSA bacteremia. The patient was discharged home on IV antibiotics, and she was on daptomycin 5 mg a day. She is followed by infectious disease specialist. The patient also has ankylosing spondylitis. About a week ago, she experienced severe right hip pain. She was not able to go to the outpatient clinic for daptomycin infusion, so she missed 1 week dose. She states that drainage from the axillary wound has increased. The patient also contacted her train controller about her severe right hip pain. X-rays were taken in the emergency room, which showed no fracture. Child Attendant increased her prednisone dose, to 30 mg t.i.d., which the patient is tapering off. She started today 25 mg once a day, which she is supposed to be taking for 3 days, then 20 mg for 3 days, and then her maintenance dose that is 15 mg a day. The patient states that her pain did not improve. The patient denies fevers or chills. She has no chest pains or shortness of breath. She denies dizziness, blurry vision, headaches, or other symptoms. PAST MEDICAL HISTORY: 1. Right axillary abscess, status post I and D, and MRSA bacteremia last month as detailed above. The patient is still on daptomycin treatment, and she missed 1 week because she could not go to the infusion center due to hip pain. 2. Diabetes mellitus type 2, mild, treated with metformin. 3. Mitral valve prolapse. 4. IgG deficiency, diagnosed 18 years ago, and was treated with IgG infusions. No treatment since then. 5. Spinal stenosis. 6. Ankylosing spondylitis. 7. Schizophrenia. 8. GERD. 9. Coronary artery disease. CURRENT MEDICATIONS: Extensive list is reviewed and documented in the patient's chart. Prednisone taper off regimen as detailed above in HPI section. As [address] [address] HISTORY AND PHYSICAL Name: JEISON PAVON Room #: 406-P [facility] IN .R.#: [id number] Admission: 04/30/17 Attend Phys: Allie Long MD Discharge: Date of : 48 Report #: [id number] noted, maintenance prednisone dose is 15 mg a day. FAMILY HISTORY: Reviewed and not pertinent to the patient's current condition. SOCIAL HISTORY: The patient smokes cigarettes. She does not drink alcohol. REVIEW OF SYSTEMS: As above in HPI section, all others negative. PHYSICAL EXAMINATION: GENERAL: The patient is an elderly female who is in no apparent distress. She is alert and oriented x3. VITAL SIGNS: Blood pressure is 143/70, heart rate is 79 and regular, respiration is 17, and temperature is 98.3. HEENT: Pupils are equal. Eye movements are normal. The patient has anicteric sclerae. NECK: Supple. Thyromegaly is not palpated. The patient has no JVD. She has no carotid bruits. RESPIRATORY: Lungs are clear to auscultation bilaterally. She has occasional wheezes. No crackles are appreciated. Overall, respiratory sounds are diminished. RESPIRATORY: The patient has regular rhythm and rate. She has no murmurs, gallops, or rubs. GASTROINTESTINAL: Abdomen is soft, nondistended, and nontender. Bowel sounds are present. The patient has no hepatomegaly or splenomegaly. MUSCULOSKELETAL: The patient has no joint deformities. She has reduced range of motion at the right hip joint due to pain. EXTREMITIES: The patient has trace edema on the legs. SKIN: The patient has open wound at the right axillary region, with some drainage. There is no erythema in the surrounding skin. NEUROLOGIC: The patient is alert and oriented x3. Her examination is nonfocal. LABORATORY DATA: Comprehensive metabolic profile is essentially normal, except that albumin of 2.9. CBC shows white count of 11.3, hemoglobin 10.1, hematocrit is 30.4, and platelets 390. Hemoglobin A1c earlier this month was 5.7. Urinalysis is consistent with UTI about week ago. X-ray of the hip shows no acute fractures. Chest x-ray is negative. PICC line is in place. ASSESSMENT AND PLAN: 1. Acute right hip pain, in the setting of ankylosing spondylitis, and chronic prednisone therapy. Differential diagnosis includes avascular necrosis, as well as infectious etiology. MRI of the right hip ordered. In the meantime, the patient will be treated symptomatically. As noted, prednisone dose was increased, and currently prednisone is being tapered off. [address] [address] HISTORY AND PHYSICAL Name: JEISON PAVON Room #: 406-P [facility] IN .Tyler.#: [id number] Admission: 04/30/17 Attend Phys: Allie Long MD Discharge: Date of : 48 Report #: [id number] The patient started 25 mg once a day today, which will be continued for 3 days. Then, she will be on 20 mg for 3 days, and then 50 mg a day, that is her maintenance dose. 2. Right axillary abscess due to methicillin-resistant Staphylococcus aureus and methicillin-resistant Staphylococcus aureus bacteria, treated here with incision and drainage about a month ago. The patient currently is on IV daptomycin treatment. She missed 1 week because she could not ambulate, and she could not go to infusion center. Daptomycin will be resumed 500 mg a day per ID recommendation. Infectious disease specialist is consulted. Input is very much appreciated. Wound care will be also consulted as well. 3. Urinary tract infection. The patient is supposed to be on Bactrim, 1 pill twice a day for 1 week per infectious disease recommendation. This will be prescribed. 4. History of IgG deficiencies some 18 years ago, was treated the patient with infusion at that time. The patient states that she has had recurrent urinary tracts and pneumonia. It is unclear whether the patient has this diagnosis or not. We will ask chick room supervisor to evaluate the patient. 5. Diabetes mellitus type 2, acceptable control, with hemoglobin A1c of 5.7% about 2 weeks ago. Metformin will be continued unchanged. 6. Deep venous thrombosis prophylaxis. SubQ Lovenox. By: [id number] Allie Long MD /nt
--- NOTE | ~2017-04-30 | HC ---
[facility] [place] [address] CONSULTATION Name: JEISON PAVON Room #: 406-P ADM IN M.R.#: [id number] Admission: 04/30/17 Attend Phys: Allie Long MD Discharge: Date of : 48 Report #: [id number] THIS REPORT FOR: //name// CC: Gavin Long DATE OF SERVICE: 05/02/2017 REASON FOR CONSULTATION: Immunodeficiency. REQUESTING PHYSICIAN: Dr. Long HISTORY OF PRESENT ILLNESS: The patient is a pleasant 67-year-old woman with a history of ankylosing spondylitis, currently on prednisone, who was admitted to the hospital with right hip pain. She apparently was hospitalized a month ago with right axillary abscess and MRSA bacteremia. She is discharged home on IV antibiotics, on daptomycin. She is currently still taking daptomycin and is followed by Infectious Disease specialist. She recently started having right hip pain, was seen by her chalk cutter, Dr. Pinead, who started her on prednisone taper. She continues to have severe right hip pain and was admitted to the hospital. MRI was done, which did not demonstrate avascular necrosis. The patient mentioned that she had a history of low immunoglobulin G level, ____. Hematology consult is requested. The patient is evaluated in her room. She is sitting in a chair. Her daughter is at the bedside. She continues to have right-sided hip pain, does not have fever or chills. The patient states that about 20 years ago, she had a different chalk cutter. She apparently was diagnosed with low immunoglobulin levels and was receiving immunoglobulin monthly for 6 months. After that, the insurance denied treatment and she has never had immunoglobulin level checked or IVIG treatment since then. She switched her care to Dr. Pineda. Dr. Pineda "never mentioned immunodeficiency or IVIG." Although the patient states that Dr. Pineda stated that she does not need to have pneumonia shot because she does not respond to pneumonia shot. She actually does not know if her ____ checked. PAST MEDICAL HISTORY: Significant for COPD, chronic sinusitis, diabetes mellitus, right axillary abscess, ankylosing spondylitis, coronary artery disease, schizophrenia per chart, although the patient did not mention this to me neither her daughter. SOCIAL HISTORY: She continues to smoke a pack a day, does not drink alcohol. FAMILY HISTORY: Noncontributory. REVIEW OF SYSTEMS: See HPI, otherwise 11 systems reviewed negative. PHYSICAL EXAMINATION: [address] [address] CONSULTATION Name: JEISON PAVON Room #: 406-P [facility] IN [facility].#: [id number] Admission: 04/30/17 Attend Phys: Allie Long MD Discharge: Date of : 48 Report #: [id number] GENERAL: Reveals a well-developed, well-nourished female, not in acute distress. VITAL SIGNS: Blood pressure 148/71, heart rate is 71, temperature 98.0, respirations 18. HEENT: Does not reveal thrush. HEART: Normal S1, S2. LUNGS: Clear. ABDOMEN: Soft. There is no supraclavicular or left axillary lymphadenopathy, right axilla has ____ PICC line in right upper arm in place. No erythema, no tenderness on palpation. EXTREMITIES: Lower extremities, no edema. MENTAL STATUS: Alert and oriented x 3. LABORATORY DATA: Hemoglobin 9.5, WBC 10.1, platelets 382. CRP 57. Sodium 126, potassium 3.8, BUN 16, creatinine 0.8. ASSESSMENT AND PLAN: 1. Immunodeficiency. I am planning to initiate workup for hypoimmunoglobulinemia. Plan to check IgG and IgM level. If IgG is low, lack of response to pneumococcal vaccine needs to be demonstrated in order to get drug approved. Otherwise, I agree with management. Thank you very much for allowing me to participate in the care of this patient. By: 1358 12 Maeve Jaffe MD /nt
[2017-04-30 12:35] VITALS: BP 109/58
[2017-04-30 15:22] LABS: ABSOLUTE NEUTROPHILS 8.6 thou/uL (1.4-8.2); BASOPHILS 1.2 % (0.0-2.0); EOSINOPHILS 0.3 % (0.0-3.0); HEMATOCRIT 30.4 % (37.0-47.0); HEMOGLOBIN 10.1 gm/dL (12.0-15.0); LYMPHOCYTES 16.5 % (24.0-44.0); MCH 30.7 pg (26.0-34.0); MCHC 33.2 g/dL (28.0-37.0); MCV 92.6 fL (80.0-100.0); MONOCYTES 5.8 % (1.0-8.0); PLATELET COUNT 390 thou/uL (150-400); POLYS 76.2 % (36.0-66.0); RBC 3.28 mil/uL (4.20-5.00); RDW 17.1 % (10.5-14.5); WBC 11.3 thou/uL (4.0-11.0)
[2017-04-30 15:24] LABS: MANUAL DIFF NO
[2017-04-30 15:31] LABS: CALCIUM 9.5 mg/dL (8.5-10.1); CREATININE 0.8 mg/dL (0.6-1.0); POTASSIUM 4.5 mmol/L (3.5-5.1)
[2017-04-30 15:36] LABS: ALBUMIN 2.9 g/dL (3.4-5.0); TOTAL BILIRUBIN 0.2 mg/dL (<0.1-1.0); TOTAL PROTEIN 7.2 g/dL (6.4-8.2)
[2017-04-30 16:55] VITALS: BP 143/70
[2017-04-30 21:23] VITALS: BP 151/74
[2017-05-01 03:34] LABS: URINE BILIRUBIN NEGATIVE (Negative); URINE BLOOD NEGATIVE (Negative); URINE COLOR YELLOW; URINE GLUCOSE-RANDOM* NEGATIVE (Negative); URINE KETONES NEGATIVE (Negative); URINE NITRITE POSITIVE (Negative); URINE PROTEIN (DIPSTICK) NEGATIVE (Negative); URINE UROBILINOGEN 0.2 E.U./dl (0.2-1.0)
[2017-05-01 04:19] LABS: SQUAMOUS 0-3 Few /LPF (0-3)
[2017-05-01 04:20] LABS: CASTS None Seen /LPF (None Seen); CRYSTALS None Seen /LPF (None Seen); URINE RBC 0-2 Rare /HPF (0-2); URINE WBC 6-15 Few /HPF (0-5)
[2017-05-01 04:30] VITALS: BP 145/66
[2017-05-01 05:38] LABS: ABSOLUTE NEUTROPHILS 5.3 thou/uL (1.4-8.2); BASOPHILS 2.1 % (0.0-2.0); EOSINOPHILS 1.7 % (0.0-3.0); HEMATOCRIT 27.9 % (37.0-47.0); HEMOGLOBIN 9.5 gm/dL (12.0-15.0); MANUAL DIFF NO; MCH 31.3 pg (26.0-34.0); MCHC 34.1 g/dL (28.0-37.0); MCV 91.8 fL (80.0-100.0); MONOCYTES 10.1 % (1.0-8.0); PLATELET COUNT 384 thou/uL (150-400); POLYS 52.1 % (36.0-66.0); RBC 3.03 mil/uL (4.20-5.00); RDW 17.2 % (10.5-14.5); WBC 10.1 thou/uL (4.0-11.0)
[2017-05-01 05:47] LABS: CALCIUM 9.1 mg/dL (8.5-10.1); CREATININE 0.9 mg/dL (0.6-1.0); POTASSIUM 3.8 mmol/L (3.5-5.1)
[2017-05-01 08:00] VITALS: BP 145/74
[2017-05-01 16:00] VITALS: BP 126/70
[2017-05-01 19:34] VITALS: BP 132/58
[2017-05-02 03:35] VITALS: BP 142/62
[2017-05-02 06:04] LABS: CALCIUM 9.3 mg/dL (8.5-10.1); CREATININE 0.8 mg/dL (0.6-1.0); POTASSIUM 3.8 mmol/L (3.5-5.1)
[2017-05-02 08:00] VITALS: BP 148/71
[2017-05-02 16:00] VITALS: BP 137/65
[2017-05-02 19:35] VITALS: BP 148/69
[2017-05-03 05:07] VITALS: BP 157/69
[2017-05-03 06:20] LABS: ABSOLUTE NEUTROPHILS 5.2 thou/uL (1.4-8.2); BASOPHILS 2.8 % (0.0-2.0); EOSINOPHILS 1.9 % (0.0-3.0); HEMATOCRIT 29.3 % (37.0-47.0); HEMOGLOBIN 9.8 gm/dL (12.0-15.0); MCH 30.8 pg (26.0-34.0); MCHC 33.4 g/dL (28.0-37.0); MCV 92.1 fL (80.0-100.0); MONOCYTES 8.5 % (1.0-8.0); PLATELET COUNT 434 thou/uL (150-400); POLYS 57.8 % (36.0-66.0); RBC 3.18 mil/uL (4.20-5.00)
[2017-05-03 06:34] LABS: CALCIUM 9.4 mg/dL (8.5-10.1); CREATININE 0.8 mg/dL (0.6-1.0); POTASSIUM 3.9 mmol/L (3.5-5.1)
[2017-05-03 06:38] LABS: MANUAL DIFF NO
[2017-05-03 07:55] VITALS: BP 145/64
[2017-05-03 10:07] LABS: IgG 766 mg/dL (700-1600); IgM 76 mg/dL (26-217)
[2017-05-03 15:00] VITALS: BP 121/61
[2017-05-03 20:01] VITALS: BP 140/67
[2017-05-04 04:09] VITALS: BP 156/69
[2017-05-04 08:57] VITALS: BP 139/59
[2017-05-04 16:00] VITALS: BP 125/70
[2017-05-04] MEDS ORDERED: PREDNISONE 10 M10 MG PO ×2 (16:14→16:35)
[2017-05-04] MEDS ORDERED: VANCOMYCIN1.25 GM/22 IV (16:14)
[2017-05-04] MEDS ORDERED: NICOTINE1 EAC2 TRANSDERM (16:14)
[2017-05-04] MEDS ORDERED: PROBIOTIC1 EAC1 PO (16:14)
[2017-05-04] MEDS ORDERED: PREDNISONE 20 M20 M1 PO (16:14)
[2017-05-05 23:12] LABS: IgG 758 mg/dL (700-1600)
== END 2017-05-04 18:21 | DRG 603 ==
LOC: ER 12:34 → EROBS 15:50 → 4N 15:50
PROVIDERS: Internal Medicine Endocrinology, Diabetes & Metabolism; Internal Medicine Hematology & Oncology; Physician Assistant; Specialist
DX: L02.411 Cutaneous abscess of right axilla (principal); L02.213 Cutaneous abscess of chest wall; D84.9 Immunodeficiency, unspecified; N39.0 Urinary tract infection, site not specified; D80.3 Selective deficiency of immunoglobulin G [IgG] subclasses; N30.90 Cystitis, unspecified without hematuria; E11.9 Type 2 diabetes mellitus without complications; E11.42 Type 2 diabetes mellitus with diabetic polyneuropathy; I10 Essential (primary) hypertension; F20.9 Schizophrenia, unspecified; K21.9 Gastro-esophageal reflux disease without esophagitis; I25.10 Atherosclerotic heart disease of native coronary artery without angina pectoris; K25.9 Gastric ulcer, unspecified as acute or chronic, without hemorrhage or perforation; F17.210 Nicotine dependence, cigarettes, uncomplicated; M45.9 Ankylosing spondylitis of unspecified sites in spine; M48.061 Spinal stenosis, lumbar region without neurogenic claudication; I34.0 Nonrheumatic mitral (valve) insufficiency; J44.9 Chronic obstructive pulmonary disease, unspecified; I34.1 Nonrheumatic mitral (valve) prolapse; B95.62 Methicillin resistant Staphylococcus aureus infection as the cause of diseases classified elsewhere; Z79.82 Long term (current) use of aspirin; Z90.710 Acquired absence of both cervix and uterus; Z79.899 Other long term (current) drug therapy; Z28.21 Immunization not carried out because of patient refusal
CPT/HCPCS: 10091

== ENCOUNTER → 2017-11-30 | Outpatient (CLI) | payer OTHER, BC ==
[~2017-11-30] MED LIST changes: +NICOTINE1 EAC2 TRANSDERM; +PREDNISONE 10 M10 MG PO; +PREDNISONE 20 M20 M1 PO; +PROBIOTIC1 EAC1 PO; +VANCOMYCIN1.25 GM/22 IV
== END ==
LOC: RAD 10:50
DX: M50.322 Other cervical disc degeneration at C5-C6 level (principal); M50.323 Other cervical disc degeneration at C6-C7 level; M12.89 Other specific arthropathies, not elsewhere classified, multiple sites; M48.02 Spinal stenosis, cervical region; M25.78 Osteophyte, vertebrae

== ENCOUNTER 2018-02-01 17:56 | Inpatient (IN) | payer OTHER, BC ==
[~2018-02-01] VITALS: Ht 165.1 cm; Wt 69.9 kg
--- NOTE | ~2018-02-01 | HC ---
[facility] [place] [address] CONSULTATION Name: JEISON PAVON Room #: 460-P [facility] IN ..#: [id number] Admission: 02/01/18 Attend Phys: Last Bal MD Discharge: Date of : 48 Report #: [id number] THIS REPORT FOR: //name// CC: Matheus Grayson DATE OF SERVICE: 02/02/2018 CHIEF COMPLAINT: Right elbow bursitis and cellulitis. HISTORY OF PRESENT ILLNESS: This 67-year-old female with history of diabetes, but without other significant medical problems. She complains of symptoms related both to a urinary tract infection and also an area of redness, swelling and discomfort over the right elbow. She is admitted for evaluation and treatment. At the time of my evaluation, she states the right elbow has been uncomfortable for about 48 hours and notes some area of redness and swelling about the elbow, particularly overlying the olecranon. She recalls no specific accidents or injuries. She denies any other areas of significant musculoskeletal discomfort. OBJECTIVE: There is a small amount of fluid in the right olecranon bursa. The elbow itself seems to demonstrate good range of motion without evidence of joint discomfort nor intraarticular fluid. There is very mild redness and swelling around the elbow and proximal forearm consistent with some cellulitis. The distal forearm, wrist and hand appear to be normal. Neurologic and vascular status appeared to be normal. X-rays of the right elbow reveal normal bony architecture alignment without any evidence of injury nor severe degenerative change. IMPRESSION: Right elbow olecranon bursitis with surrounding cellulitis. I have discussed this with the patient reviewing treatment options. I have suggested incision and drainage of the olecranon bursa. She is somewhat reluctant and would prefer not to go to the operating room for any sort of an anesthetic or more aggressive procedure. She is, however, willing to accept a simple local anesthetic and limited irrigation and debridement at the bedside. I suspect this will be sufficient to allow healing with appropriate antibiotic coverage. We will plan to proceed with a limited incision and drainage of the right elbow bursa today. <ELECTRONICALLY SIGNED> By: Marco Antonio Lee MD 02/02/18 1056 0856 1000 Marco Antonio Lee MD /nt
[2018-02-01 18:01] VITALS: BP 116/64
[2018-02-01] MEDS ORDERED: LYRICA 75 MG CA75 MG PO (18:34)
[2018-02-01] MEDS ORDERED: LASIX 20 MG TAB20 MG PO (18:35)
[2018-02-01] MEDS ORDERED: TUMS PO (18:36)
[2018-02-01 19:27] LABS: URINE BILIRUBIN NEGATIVE (Negative); URINE BLOOD 2+ (Negative); URINE CLARITY CLEAR; URINE COLOR YELLOW; URINE GLUCOSE-RANDOM* NEGATIVE (Negative); URINE KETONES NEGATIVE (Negative); URINE PROTEIN (DIPSTICK) NEGATIVE (Negative); URINE SPECIFIC GRAVITY <= 1.005 (1.005-1.035); URINE UROBILINOGEN 0.2 E.U./dl (0.2-1.0)
[2018-02-01 19:29] LABS: URINE LEUKOCYTES-REFLEX 1+ (Negative); URINE NITRITE-REFLEX POSITIVE (Negative)
[2018-02-01 19:40] LABS: BACTERIA-REFLEX >30 Many /HPF (None Seen); CASTS None Seen /LPF (None Seen); CRYSTALS None Seen /LPF (None Seen); SQUAMOUS 0-3 Few /LPF (0-3); URINE RBC >20 Many /HPF (0-2)
[2018-02-01 19:45] LABS: ABSOLUTE NEUTROPHILS 15.6 thou/uL (1.4-8.2); BASOPHILS 0.6 % (0.0-2.0); EOSINOPHILS 1.3 % (0.0-3.0); HEMATOCRIT 31.2 % (37.0-47.0); LYMPHOCYTES 8.6 % (24.0-44.0); MCH 31.8 pg (26.0-34.0); MCHC 35.3 g/dL (28.0-37.0); MONOCYTES 6.9 % (1.0-8.0); PLATELET COUNT 385 thou/uL (150-400); POLYS 82.6 % (36.0-66.0); RBC 3.47 mil/uL (4.20-5.00); WBC 18.8 thou/uL (4.0-11.0)
[2018-02-01 19:55] LABS: CALCIUM 9.2 mg/dL (8.5-10.1); CREATININE 0.8 mg/dL (0.6-1.0); POTASSIUM 4.2 mmol/L (3.5-5.1)
[2018-02-01 19:57] LABS: ALBUMIN 2.9 g/dL (3.4-5.0); TOTAL BILIRUBIN 0.4 mg/dL (<0.1-1.0); TOTAL PROTEIN 6.9 g/dL (6.4-8.2)
[2018-02-01 20:48] VITALS: BP 148/72
[2018-02-01 21:08] VITALS: BP 167/79
[2018-02-01 21:22] VITALS: BP 153/123
[2018-02-02 03:13] VITALS: BP 141/66
[2018-02-02 07:29] VITALS: BP 137/70
[2018-02-02 15:40] VITALS: BP 140/67
[2018-02-02 20:33] VITALS: BP 149/66
[2018-02-03 03:22] VITALS: BP 137/80
[2018-02-03 07:58] VITALS: BP 155/72
[2018-02-03 08:35] LABS: HEMATOCRIT 32.6 % (37.0-47.0); HEMOGLOBIN 11.4 gm/dL (12.0-15.0); MCH 31.1 pg (26.0-34.0); MCHC 34.9 g/dL (28.0-37.0); RBC 3.67 mil/uL (4.20-5.00); RDW 13.9 % (10.5-14.5); WBC 20.2 thou/uL (4.0-11.0)
[2018-02-03 16:55] VITALS: BP 147/72
[2018-02-03 19:05] VITALS: BP 109/66
[2018-02-04 03:46] VITALS: BP 147/71
[2018-02-04 05:47] LABS: HEMATOCRIT 31.4 % (37.0-47.0); HEMOGLOBIN 10.6 gm/dL (12.0-15.0); MCH 31.1 pg (26.0-34.0); MCHC 33.8 g/dL (28.0-37.0); MCV 91.9 fL (80.0-100.0); RBC 3.41 mil/uL (4.20-5.00); RDW 14.2 % (10.5-14.5); WBC 16.4 thou/uL (4.0-11.0)
[2018-02-04 08:00] VITALS: BP 147/70
[2018-02-04 16:00] VITALS: BP 150/75
[2018-02-04 20:23] VITALS: BP 166/72
[2018-02-05 02:50] VITALS: BP 171/83
[2018-02-05 07:34] VITALS: BP 156/76
[2018-02-05] MEDS ORDERED: CLEOCIN HCL150 MG PO (09:30)
[2018-02-05 11:08] LABS: HEMATOCRIT 33.4 % (37.0-47.0); HEMOGLOBIN 11.3 gm/dL (12.0-15.0); MCH 31.4 pg (26.0-34.0); MCHC 33.8 g/dL (28.0-37.0); MCV 92.9 fL (80.0-100.0); RBC 3.6 mil/uL (4.20-5.00); RDW 14.2 % (10.5-14.5); WBC 11.5 thou/uL (4.0-11.0)
[2018-02-05 14:05] VITALS: BP 156/76
== END 2018-02-05 14:56 | disposition home health service (06) | DRG 872 ==
LOC: ER 17:56 → EROBS 20:02 → 4W 20:02
PROVIDERS: Hospitalist; Physician Assistant
PROC: 0R9L3ZX Drainage of Right Elbow Joint, Percutaneous Approach, Diagnostic (ICD-10-PCS; principal; 2018-02-02)
DX: A41.9 Sepsis, unspecified organism (principal); N39.0 Urinary tract infection, site not specified; L03.113 Cellulitis of right upper limb; D80.3 Selective deficiency of immunoglobulin G [IgG] subclasses; E11.42 Type 2 diabetes mellitus with diabetic polyneuropathy; I10 Essential (primary) hypertension; K21.9 Gastro-esophageal reflux disease without esophagitis; I25.10 Atherosclerotic heart disease of native coronary artery without angina pectoris; M70.21 Olecranon bursitis, right elbow; F17.210 Nicotine dependence, cigarettes, uncomplicated; M06.9 Rheumatoid arthritis, unspecified; M45.9 Ankylosing spondylitis of unspecified sites in spine; F20.9 Schizophrenia, unspecified; J44.9 Chronic obstructive pulmonary disease, unspecified; G47.00 Insomnia, unspecified; M54.10 Radiculopathy, site unspecified; Z82.49 Family history of ischemic heart disease and other diseases of the circulatory system; Z90.710 Acquired absence of both cervix and uterus; Z80.0 Family history of malignant neoplasm of digestive organs; Z79.82 Long term (current) use of aspirin; Z79.899 Other long term (current) drug therapy
CPT/HCPCS: 10040

== ENCOUNTER 2018-02-14 17:04 | Emergency (ER) | payer OTHER, BC ==
[~2018-02-14] VITALS: Ht 165.1 cm; Wt 63.5 kg
[~2018-02-14 17:04] MED LIST changes: +CLEOCIN HCL150 MG PO; +LYRICA 75 MG CA75 MG PO; +TUMS PO
[2018-02-14 18:25] LABS: ABSOLUTE NEUTROPHILS 7.9 thou/uL (1.4-8.2); BASOPHILS 1.4 % (0.0-2.0); EOSINOPHILS 1.4 % (0.0-3.0); HEMATOCRIT 30.8 % (37.0-47.0); HEMOGLOBIN 10.7 gm/dL (12.0-15.0); LYMPHOCYTES 21.5 % (24.0-44.0); MCH 31.6 pg (26.0-34.0); MCHC 34.6 g/dL (28.0-37.0); MCV 91.4 fL (80.0-100.0); MONOCYTES 6.7 % (1.0-8.0); PLATELET COUNT 478 thou/uL (150-400); RBC 3.37 mil/uL (4.20-5.00); RDW 14.6 % (10.5-14.5); WBC 11.5 thou/uL (4.0-11.0)
[2018-02-14 18:40] LABS: CALCIUM 10.2 mg/dL (8.5-10.1); CREATININE 1.1 mg/dL (0.6-1.0); POTASSIUM 4.7 mmol/L (3.5-5.1)
[2018-02-14] MEDS ORDERED: NORCO 5-325 TA1 EACH PO (19:30)
== END 2018-02-14 19:52 | disposition home or self-care (01) ==
LOC: ER 17:04
PROVIDERS: Emergency Medicine
DX: M70.21 Olecranon bursitis, right elbow (principal); F17.210 Nicotine dependence, cigarettes, uncomplicated; E11.40 Type 2 diabetes mellitus with diabetic neuropathy, unspecified; I10 Essential (primary) hypertension; K21.9 Gastro-esophageal reflux disease without esophagitis; I25.10 Atherosclerotic heart disease of native coronary artery without angina pectoris; F20.9 Schizophrenia, unspecified; Z90.710 Acquired absence of both cervix and uterus; Z90.89 Acquired absence of other organs; Y93.89 Activity, other specified

== ENCOUNTER 2019-03-18 14:00 | Inpatient (IN) | payer OTHER ==
[~2019-03-18] VITALS: Ht 152.4 cm; Wt 66.9 kg
[2019-03-18] VITALS (16 sets, daily range): BP systolic 70–136; BP diastolic 42–99
[~2019-03-18 14:00] MED LIST changes: +NORCO 5-325 TA1 EACH PO
[2019-03-18 14:30] LABS: ABSOLUTE NEUTROPHILS 9.3 thou/uL (1.4-8.2); BASOPHILS 1.1 % (0.0-2.0); EOSINOPHILS 0.4 % (0.0-3.0); HEMOGLOBIN 10.2 gm/dL (12.0-15.0); LYMPHOCYTES 14.6 % (24.0-44.0); MCH 30.7 pg (26.0-34.0); MCHC 32.9 g/dL (28.0-37.0); MCV 93.5 fL (80.0-100.0); MONOCYTES 5.4 % (1.0-8.0); PLATELET COUNT 302 thou/uL (150-400); POLYS 78.5 % (36.0-66.0); RBC 3.32 mil/uL (4.20-5.00); RDW 16.1 % (10.5-14.5); WBC 11.9 thou/uL (4.0-11.0)
[2019-03-18 14:36] LABS: ANION GAP 11 mmol/L (7-16); BUN 54 mg/dL (7-18); CALCIUM 9.9 mg/dL (8.5-10.1); CHLORIDE 103 mmol/L (98-107); CO2 22 mmol/L (21-32); CREATININE 1.8 mg/dL (0.6-1.0); GLUCOSE 107 mg/dL (74-106); POTASSIUM 5.8 mmol/L (3.5-5.1); SODIUM 136 mmol/L (136-145)
[2019-03-18 14:46] LABS: ALBUMIN 3.3 g/dL (3.4-5.0); DIRECT BILIRUBIN < 0.1 mg/dL (<0.1-0.3); SGOT 45 U/L (15-37); SGPT 27 U/L (30-65); TOTAL BILIRUBIN 0.3 mg/dL (<0.1-1.0); TOTAL PROTEIN 7.3 g/dL (6.4-8.2); TROPONIN-I <0.06 ng/mL (<0.06)
[2019-03-18] MEDS ORDERED: REQUIP 1 MG TABL1 M1 PO (16:03)
[2019-03-18 16:37] LABS: URINE BILIRUBIN NEGATIVE (Negative); URINE BLOOD 1+ (Negative); URINE CLARITY SL CLOUDY; URINE COLOR YELLOW; URINE GLUCOSE-RANDOM* NEGATIVE (Negative); URINE KETONES NEGATIVE (Negative); URINE NITRITE-REFLEX NEGATIVE (Negative); URINE PROTEIN (DIPSTICK) 2+ (Negative); URINE UROBILINOGEN 0.2 E.U./dl (0.2-1.0)
[2019-03-18 16:38] LABS: URINE LEUKOCYTES-REFLEX 3+ (Negative)
[2019-03-18 16:45] LABS: SQUAMOUS 4-10 Moderate /LPF (0-3)
[2019-03-18 16:46] LABS: BACTERIA-REFLEX >30 Many /HPF (None Seen); CASTS None Seen /LPF (None Seen); CRYSTALS None Seen /LPF (None Seen); RENAL EPITHELIAL CELLS 4-10 Moderate /LPF (None Seen); TRANSITIONAL EPITHEL CELL 0-3 Few /LPF (None Seen); URINE WBC-REFLEX >25 Many /HPF (0-5)
[2019-03-18 16:47] LABS: URINE RBC 0-2 Rare /HPF (0-2)
[2019-03-18 18:21] LABS: URINE CREATININE-RANDOM* 53.9 mg/dL
--- NOTE | 2019-03-18 19:36 | NUR ---
Pt arrived ICU via cart, accompnied with ED staffs to room 247. AAOx3. She is being admit for symptomatic bradycardia. She is currently showing SR/SA on monitor, BP is stable. She is tachypnic, RR in low 28 time /min. O2 sat 93% on RA. C/O Chest pressure in mid epigastric area.Trop is negative per lab result. Skin is very cold, fingers are cyanotic noted. She is afebrile. IV patent. Physical assessment completed. Will continue working toward goals.
--- NOTE | 2019-03-18 19:42 | NUR ---
This RN obtained finger stick and it was 27 mg/dl. Gave 25 mg of dextrose IV stat. BS came up to 183 mg/dl. Will notify hospitalist regarding of above.
--- NOTE | 2019-03-18 20:15 | NUR ---
Pt is noted to be in A-fib, rate controlled. Chest pressure slightly improved per her report. Still having SOB. Will obtain EKG stat and call result to .
--- NOTE | 2019-03-18 20:32 | NUR ---
CALLED BACK WITH ORDERS.
[2019-03-18 20:56] LABS: CALCIUM 8.6 mg/dL (8.5-10.1); CREATININE 1.9 mg/dL (0.6-1.0); PHOSPHORUS 4.7 mg/dL (2.5-4.9)
[2019-03-18 20:57] LABS: POTASSIUM 4.3 mmol/L (3.5-5.1)
[2019-03-18 21:40] LABS: BE(vivo) -7.3 mmol/L (-2 to +3); HCO3 17.9 mmol/L (22.0-26.0); PCO2 34.6 mmHg (35.0-45.0); PO2 61.5 mmHg (80.0-100.0); pH 7.331 (7.360-7.450); sO2 90.3 % (92.0-98.0)
[2019-03-19] VITALS (28 sets, daily range): BP systolic 84–128; BP diastolic 37–89
--- NOTE | 2019-03-19 04:27 | NUR ---
PT LESS SHORTNESS OF AIR THIS AM. LESS CHEST PRESSURE PER PT REPORT. WILL CONTINUE TO MONITOR.
[2019-03-19 06:15] LABS: HEMATOCRIT 26.7 % (37.0-47.0); MCHC 33.8 g/dL (28.0-37.0); MCV 91.8 fL (80.0-100.0); RBC 2.91 mil/uL (4.20-5.00); RDW 15.4 % (10.5-14.5); WBC 11.8 thou/uL (4.0-11.0)
[2019-03-19 06:28] LABS: ALBUMIN 2.7 g/dL (3.4-5.0); CALCIUM 8.4 mg/dL (8.5-10.1); CREATININE 1.4 mg/dL (0.6-1.0); PHOSPHORUS 3.7 mg/dL (2.5-4.9)
[2019-03-19 07:18] LABS: APTT 22.4 Seconds (24.5-32.8); FIBRINOGEN 254.6 mg/dL (210-360); INR 1.1; PROTIME 11.4 Seconds (9.3-11.4)
[2019-03-19 08:23] LABS: % SATURATION 8 % (20-39); IRON 26 ug/dL (50-170); TIBC 319 ug/dL (250-450)
--- NOTE | 2019-03-19 10:44 | EKG ---
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
--- NOTE | 2019-03-19 10:51 | EKG ---
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: adelina : 1950 Requested By: Wilfred Barry Order Number: [id number] MD: Mauri Ellis Measurements Intervals [place] Rate: 108 P: CT: QRS: 105 QRSD: 97 T: 74 QT: 340 QTc: 456 Interpretive Statements Atrial fibrillation Right axis deviation Compared to ECG 03/26/2017 16:56:52 atrial fibrillation has replaced junctional rhythm Electronically Signed On 03-19-2019 10:51:41 CDT by Mauri Ellis [email or web address] <ELECTRONICALLY SIGNED> By: Mauri Ellis MD, [facility] 03/19/19 1051 11 11 Mauri Ellis MD, FACC /EPI
--- NOTE | 2019-03-19 10:54 | EKG ---
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: adelina : 1950 Requested By: Mauri Ellis Order Number: [id number] MD: Mauri Ellis Measurements Intervals [place] Rate: 104 P: [place]: QRS: 91 QRSD: 99 T: 87 QT: 356 QTc: 469 Interpretive Statements Atrial flutter with predominant 2:1 AV block Right axis deviation Borderline low voltage, extremity leads Nonspecific ST segment abnormality Compared to ECG 03/26/2017 16:56:52 Atrial flutter has replaced atrial fibrillation Electronically Signed On 03-19-2019 10:53:59 CDT by Mauri Ellis [email or web address] <ELECTRONICALLY SIGNED> By: Mauri Ellis MD, [facility] 03/19/19 1053 0746 0746 Mauri Ellis MD, [facility] /EPI
--- NOTE | 2019-03-19 13:12 | HC ---
[facility] [place] [address] CONSULTATION Name: JEISON PAVON Room #: [facility] IN ..#: [id number] Admission: 03/18/19 Attend Phys: Long Salcido MD Discharge: Date of : 48 Report #: [id number] THIS REPORT FOR: //name// CC: Long Salcido [facility] physician/PCP DATE OF SERVICE: 03/19/2019 REASON FOR CONSULTATION: Paroxysmal atrial flutter. HISTORY OF PRESENT ILLNESS: The patient is a 69-year-old woman with diabetes and intermittent palpitations for which she has been maintained on long-term atenolol. Over the past couple of weeks, she has been remodeling her home and with this, has been unable to get to her kitchen area as a consequence, she reports being dehydrated and not been taking the usual amount of fluids and liquids over the past week or two. Two days ago, she developed low-grade fevers. She has had intermittent palpitations for all of this thinking that this was probably related to her mitral valve prolapse. Yesterday, she developed nausea, vomiting and diarrhea. She presented to the Emergency Department where she was found to be in a junctional rhythm and hypotensive. Her junctional rhythm immediately resolved with correction of her hyperkalemia. She was given fluids and has had resolution of her hypotension. She was found to be initially in junctional rhythm, although has developed atrial flutter with 2:1 AV conduction. She is currently asymptomatic with this rate controlled rhythm. She denies chest pain, pressure or ischemic type symptoms. No heart failure symptoms including orthopnea, paroxysmal nocturnal dyspnea, or lower extremity edema. She reports earlier in the year, undergoing back surgery and prior to this had both an echocardiogram and nuclear stress study, which she reports were normal. Her diagnosis of mitral valve prolapse was made at least 25 years ago and there is uncertainty about this. MEDICATIONS: Include Lyrica 75 mg 4 times a day, Lasix 20 mg daily, carbamazepine 200 mg 3 times a day, atenolol 50 mg twice daily, atorvastatin 80 mg daily, metformin 1000 mg twice daily, aspirin 81 mg daily. ALLERGIES: No known drug allergies. PAST MEDICAL HISTORY: Medical records have been reviewed and include a history of tonsillectomy, hysterectomy, type 2 diabetes, IgG deficiency, peripheral neuropathy, spinal stenosis, ankylosing spondylitis, reflux disease, chest wall MRSA infection in 2017. SOCIAL HISTORY: She is an ongoing smoker, nondrinker. . FAMILY HISTORY: Unremarkable for [place] [address] CONSULTATION Name: JEISON PAVON Room #: 247-P [facility] IN [facility]#: [id number] Admission: 03/18/19 Attend Phys: Long Salcido MD Discharge: Date of : 48 Report #: [id number] REVIEW OF SYSTEMS: All systems negative except as that noted above. PHYSICAL EXAMINATION: GENERAL: A pleasant woman in no distress. VITAL SIGNS: Blood pressure is 120/89, heart rate of 100 and regular. She has a low-grade temperature at 99.6 degrees, 5 feet 5 inches tall, 154 pounds. HEENT: There are neither xanthelasma, subcutaneous xanthomata, oral mucosal or digital cyanosis or kyphoscoliosis present. CHEST: Clear to auscultation and percussion. CARDIOVASCULAR: Regular rate and rhythm with normal S1 and S2. There is a soft systolic murmur at the left sternal border. ABDOMEN: Soft and nontender. EXTREMITIES: Without cyanosis, clubbing or edema. Radial pulses are 2+. NEUROLOGIC: She is alert with a nonfocal exam. LABORATORY DATA: EKG, atrial flutter versus atrial tachycardia with 2:1 [address] conduction. Minimal nonspecific ST segment abnormality. Her initial creatinine was 1.9, now down to 1.4, potassium 5.8, now 4.0, magnesium 1.2. White count is 11.8, hemoglobin 9, hematocrit 26, platelet count 228. Chest x-ray is normal. IMPRESSION: 1. Paroxysmal atrial flutter, recent history of junctional bradycardia in the setting of renal failure and hyperkalemia, beta blockade. 2. Hypertension. 3. Acute kidney injury. 4. Urosepsis. 5. Probable chronic obstructive pulmonary disease, tobacco dependency. 6. Diabetes type 2. 7. Ankylosing spondylitis. 8. Anemia. RECOMMENDATIONS: 1. Resume atenolol, dose reduced. 2. Consider long-term anticoagulant therapy given elevated CHADS-VASc score. 3. Recent echocardiogram and stress study from [employer] have been requested. She reports both of these were normal prior to a neck operation. Thank you for asking me to participate in her care. <ELECTRONICALLY SIGNED> By: Mauri Ellis MD, [facility] 03/19/19 1312 0802 0850 Mauri Ellis MD, [facility] /nt
[2019-03-20] VITALS (11 sets, daily range): BP systolic 102–148; BP diastolic 55–79
--- NOTE | 2019-03-20 04:26 | NUR ---
ASSUMED CARE OF PT. AT 1900. PT. IS ALERT AND ORIENTEDX4. PLEASANT AND CALM. DENIES PAIN. PT. REPORTS PASSING GAS THROUGHOUT NIGHT, NO EPISODES OF DIARRHEA. PT. ABLE TO EALK TO CHAIR WITH ASSISTANCE, SELF CARE BATH GIVEN IN CHAIR. PT. HAS SLEPT THROUGH THE NIGHT WITHOUT PROBLEM. NO NEW CHANGES. PT. IS PROGRESSING TOWARDS GOALS. ASSESSMENTS AND VITAL SIGNS CHARTED. WILL CONTINUE TO MONITOR.
[2019-03-20 06:04] LABS: ALBUMIN 2.6 g/dL (3.4-5.0); CALCIUM 8.5 mg/dL (8.5-10.1); CREATININE 0.9 mg/dL (0.6-1.0); PHOSPHORUS 3.1 mg/dL (2.5-4.9); POTASSIUM 4.5 mmol/L (3.5-5.1)
[2019-03-20 06:44] LABS: HEMATOCRIT 27.4 % (37.0-47.0); HEMOGLOBIN 9.3 gm/dL (12.0-15.0); MCH 31.3 pg (26.0-34.0); MCV 92.1 fL (80.0-100.0); RBC 2.97 mil/uL (4.20-5.00); RDW 15.6 % (10.5-14.5); WBC 12.6 thou/uL (4.0-11.0)
--- NOTE | 2019-03-20 14:34 | NUR ---
INITIAL ASSESSMENT: Received consult. YOLANDA reviewed chart and spoke with nursing and attending physician. Pt was admitted from home due to bradycardia/hyperkalemia/RYLEY. Pt was transferred to CCU from ICU earlier this afternoon. Pt is progressing towards goals for discharge. Discharge home is anticipated for tomorrow. YOLANDA met with pt at bedside. Introduced role of SW. Pt is alert/orientated x 4. Pt reports she lives at home with her , dtr and grandchildren. Prior to admission, pt was using a rollator walker. Pt lives in a split level home. Per pt, the ground level is currently under construction. Pt states that she has rollator walkers on the second and third level. Pt asking for a rollator walker. SW explained that insurance will cover a new walker every 5 years. SW offered to have a [place] check when rollator walker was last issued. Pt agreeable. YOLANDA contacted [facility] liaison to check. Pt has used [facility] in the past for home health. SW provided pt with list of HH agencies for review. Pt would prefer to have outpatient therapy if needed, due to current condition at her home. Pt's PCP is Dr. Emanuel Grayson. Plan is for pt to discharge home when medically stable. YOLANDA is following to assist as needed with discharge planning.
--- NOTE | 2019-03-20 17:17 | NUR ---
PATIENT ARRIVED FROM ICU VIA W/C ALERT AND ORIENTED X4. AND DENIES ANY DISCOMFORT. ASSESMENT CHARTED. VSS AND WILL CONTINUE WITH POC.
--- NOTE | 2019-03-21 01:43 | NUR ---
ASSUMED CARE OF PATIENT AT 1900. REMAINS IN A FIB. HEART RATE 110-125. DOES NOT SUSTAIN ABOVE 115. UP TO BATHROOM TO VOID. NO BOWEL MOVEMENT THIS SHIFT. DENIES PAIN, SOA OR N/V. WHEN DISCUSSING HER IRON BEING LOW, SHE ASKED IF HEMONCOLOGY WOULD BE CONSULTED. SHE STATED SHE DID NOT WANT TO HAVE THEM CONSULTED BECAUSE IF IT IS CANCER, SHE WOULDN'T TREAT IT ANYWAYS. AT THIS POINT, THERE IS NO ORDER TO CONSULT. RESTING COMFORTABLY. PROGRESSING TOWARDS POC GOALS.
[2019-03-21 03:56] VITALS: BP 124/88
[2019-03-21 05:24] LABS: HEMATOCRIT 29.5 % (37.0-47.0); HEMOGLOBIN 9.9 gm/dL (12.0-15.0); MCH 31.3 pg (26.0-34.0); MCHC 33.8 g/dL (28.0-37.0); MCV 92.7 fL (80.0-100.0); RBC 3.18 mil/uL (4.20-5.00); RDW 15.3 % (10.5-14.5); WBC 10.5 thou/uL (4.0-11.0)
[2019-03-21 05:33] LABS: ALBUMIN 2.6 g/dL (3.4-5.0); CALCIUM 9.3 mg/dL (8.5-10.1); CREATININE 0.9 mg/dL (0.6-1.0); MAGNESIUM 1.3 mg/dL (1.8-2.4); PHOSPHORUS 2.8 mg/dL (2.5-4.9)
[2019-03-21 06:00] LABS: POTASSIUM 3.4 mmol/L (3.5-5.1)
[2019-03-21 07:50] VITALS: BP 124/68
--- NOTE | 2019-03-21 12:00 | 2DMMODE ---
[facility] [address] [place] [address] 2 D/M-MODE ECHOCARDIOGRAM Name: JEISON PAVON Leah Room #: 204-P [facility].#: [id number] Admission: 03/18/19 Attend Phys: Long Salcido MD Discharge: Date of : 48 Date of Service: 03/21/19 1159 Report #: [id number] THIS REPORT FOR: //name// APPROVED REPORT Study performed: 03/21/2019 10:57:07 EXAM: Comprehensive 2D, Doppler, and color-flow Echocardiogram Patient Location: Echo lab Room #: [facility] Status: routine BSA: 1.64 HR: 103 bpm BP: 124/88 mmHg Rhythm: Atrial Fibrillation Other Information Study Quality: Good Indications Atrial Fibrillation Hx: CAD, COPD, DM, HTN. (Heart rate ranged from the 80s-120s during exam) 2D Dimensions RVDd: 30.87 mm IVSd: 8.89 (7-11mm) LVOT Diam: 20.89 (18-24mm) LVDd: 42.02 mm PWd: 9.26 (7-11mm) Ascending Ao: 27.59 (22-36mm) LVDs: 30.84 (25-40mm) Aortic Root: 32.14 mm Volumes Left Atrial Volume (Systole) Single Plane 4CH: 59.90 mL Single Plane 2CH: 59.69 mL LA ESV Index: 41.00 mL/m2 Aortic Valve AoV Peak Sdidharth.: 1.06 m/s AO Peak Gr.: 4.52 mmHg LVOT Max P.20 mmHg LVOT Max V: 0.74 m/s SUNNY Vmax: 2.39 cm2 Mitral Valve MV Decel. Time: 109.58 ms [facility] [address] [address] 2 D/M-MODE ECHOCARDIOGRAM Name: JEISON PAVON Room #: 204-P [facility]#: [id number] Admission: 03/18/19 Attend Phys: Long Salcido MD Discharge: Date of : 48 Date of Service: 03/21/19 1159 Report #: [id number] E Max Siddharth.: 1.19 m/s Pulmonary Valve PV Peak Siddharth.: 0.76 m/s PV Peak Gr.: 2.35 mmHg Pulmonary Vein P Vein S: 0.33 m/s P Vein D: 0.58 m/s P Vein S/D Ratio: 0.57 Tricuspid Valve TR Peak Siddharth.: 2.60 m/s RAP Estimate: 5.00 mmHg TR Peak Gr.: 27.13 mmHg PA Pressure: 32.00 mmHg Left Ventricle The left ventricle is normal size. There is normal LV segmental wall motion. There is normal left ventricular wall thickness. Left ventricular systolic function is normal. LVEF is 50-55%. This study is not technically sufficient to allow evaluation of the LV diastolic function due to atrial fibrillation. Right Ventricle The right ventricle is normal size. The right ventricular systolic function is normal. Atria Left atrium is moderately dilated. The right atrium size is normal. Aortic Valve Aortic valve is trileaflet; mildly sclerotic. No aortic regurgitation is present. There is no aortic valvular stenosis. Mitral Valve Mild mitral annular calcification. Moderate mitral regurgitation. Tricuspid Valve The tricuspid valve is normal in structure. Moderate tricuspid regurgitation. Estimated PAP is 30-35mmHg. Pulmonic Valve The pulmonary valve is normal in structure. Trace to mild pulmonic regurgitation. [facility] [address] [place] [address] 2 D/M-MODE ECHOCARDIOGRAM Name: JEISON PAVON Room #: 204-P [facility] ..#: [id number] Admission: 03/18/19 Attend Phys: Long Salcido MD Discharge: Date of : 48 Date of Service: 03/21/19 1159 Report #: [id number] Great Vessels The aortic root is normal in size. The ascending aorta is normal in size. IVC is normal in size and collapses >50% with inspiration. Pericardium There is no pericardial effusion. <Conclusion> Left ventricular systolic function is normal. There is normal LV segmental wall motion. LVEF is 50-55%. Left atrium is moderately dilated. Aortic valve is trileaflet; mildly sclerotic. No aortic regurgitation or stenosis. Mild mitral annular calcification. Moderate mitral regurgitation. Moderate tricuspid regurgitation. Estimated pulmonary artery pressure of 30-35mmHg. There is no pericardial effusion. <ELECTRONICALLY SIGNED> By: Mauri Ellis MD, [facility]ACC 03/21/19 1159 1159 1159 Mauri Ellis MD, FAC /INF
--- NOTE | 2019-03-21 15:25 | NUR ---
FAXED REFERRAL TO [facility] FOR NEBULIZER FOR HOME SPOKE WITH ZAIN IN INTAKE SHE RECEIVED REFERRAL AND WILL DELIVER NEBULIZER TO PT PRIOR TO DC. DCP TO FOLLOW.
[2019-03-21 16:00] VITALS: BP 118/85
--- NOTE | 2019-03-21 16:21 | NUR ---
SW received call from pt this morning requesting assistance with obtaining a nebulizer. Pt states she has had one in the past, but it is broken. Options for DME companies provided. No preference voiced. Scripts obtained for nebulizer and rollator walker. operations planner faxed info and script to [facility] for review for the nebulizer. YOLANDA provided script to [facility] liaison, who will deliver rollator walker to pt's room prior to discharge. Discharge home is anticipated for tomorrow. YOLANDA met with pt at bedside to provide update. Pt is aware and agreeable [facility] discharge plan. Pt will want outpatient therapy if needed. Contact info for [facility] and [facility] placed in pt's discharge summary. YOLANDA is following to assist as needed with discharge planning.
[2019-03-21 16:24] VITALS: BP 124/88
--- NOTE | 2019-03-21 16:38 | NUR ---
AAOX4. CALM, COOPERATIVE. AFIB W/RVR PER TELE EARLY THIS A.M., BUT NEW MEDICATIONS BY DR. VÁSQUEZ AND HR DOWN AROUND 100. PT ALSO STATES SHE IS LESS SYMPTOMATIC. ELECTROLYTES REPLACED ORDERED. MEDICATED FOR CERVICAL PAIN WITH GOOD EFFECT. FREQUENT CHECKS; WILL CONTINUE TO MONITOR.
--- NOTE | 2019-03-21 17:16 | EKG ---
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 : 1950 Requested By: Mauri Ellis Order Number: [id number] MD: Mauri Ellis Measurements Intervals [place] Rate: 100 P: [place]: QRS: 84 QRSD: 100 T: 18 QT: 333 QTc: 430 Interpretive Statements Atrial flutter with variable AV block Borderline right axis deviation Minimal ST depression Compared to ECG 03/19/2019 07:46:44 No significant changes Electronically Signed On 03-21-2019 17:15:55 CDT by Mauri Ellis [email or web address] <ELECTRONICALLY SIGNED> By: Mauri Ellis MD, [facility] 03/21/19 1715 8 8 Mauri Ellis MD, [facility] /EPI
[2019-03-21 20:11] VITALS: BP 138/84
--- NOTE | 2019-03-22 03:22 | NUR ---
ASSUMED CARE OF PATIENT AT 1900. VSSM AFEBRILE. C/O MILD BACK PAIN, RELIEVED WITH PRN MEDS. HEART RATE MUCH MORE CONTROLLED. UP WITH WALKER TO BATHOOM. ANTICIPATED DC. PROGRESSING TOWARDS POC GOALS.
[2019-03-22 04:00] VITALS: BP 124/66
[2019-03-22 06:32] LABS: CALCIUM 9.3 mg/dL (8.5-10.1); CREATININE 0.9 mg/dL (0.6-1.0); POTASSIUM 4.1 mmol/L (3.5-5.1)
[2019-03-22 07:31] VITALS: BP 114/82
[2019-03-22] MEDS ORDERED: CARDIZEM CD 18180 M3 PO (10:51)
--- NOTE | 2019-03-22 11:00 | NUR ---
AAOX4. CALM. COOPERATIVE. ANTICIPATING DISCHARGE BUT HR STILL ELEVATING IN A TRANSIENT FASHION AND CARDIAC MEDS BEING ADJUSTED. AFIB PER TELE PERSISTS. WILL CONTINUE TO MONITOR.
[2019-03-22 11:09] VITALS: BP 124/88
[2019-03-22 11:32] VITALS: BP 124/88
--- NOTE | 2019-03-22 11:56 | NUR ---
BEING DISCHARGED TO HOME. DISCHARGE INSTRUCTIONS, SCRIPT AND INFO SHEET GIVEN.
--- NOTE | 2019-03-22 14:20 | NUR ---
DISCHARGE NOTE: Pt is medically stable for discharge home today. [facility] delivered rollator walker to pt's room earlier today[facility] Contact info for both providers placed in pt's discharge summary. Pt's family provided transportation home. No additional SW needs identified, but is available to assist should needs arise.
--- NOTE | 2019-03-23 11:03 | HC ---
[facility] [place] [address] CONSULTATION Name: JEISON PAVON Room #: 204-P [facility] IN M.R.#: [id number] Admission: 03/18/19 Attend Phys: Long Salcido MD Discharge: 03/22/19 Date of : 48 Report #: [id number] THIS REPORT FOR: //name// CC: Long Salcido [facility] physician/PCP DATE OF SERVICE: 03/18/2019 ATTENDING PHYSICIAN: Dr. Long Salcido. REASON FOR CONSULTATION: Elevated creatinine and hyperkalemia. HISTORY OF PRESENT ILLNESS: This 69-year-old patient has had several days' history of chills, weakness, diarrhea, and shortness of air. She became weaker, was unable to walk, and normally she is able to get around with a walker. She was brought to the Emergency Room, found to be in a junctional heart rhythm and hypotensive. She also states that she has not been able to drink the usual amounts of fluids due to remodeling at her home, and she typically is on Lasix, but has not been taking it for several days as well. HOME MEDICATIONS: Include folic acid 2 mg daily, Flexeril 10 mg t.i.d., Restoril 30 mg at bedtime, [place] p.r.n., Xanax 1 mg every 8 hours p.r.n., Lyrica 75 mg q.i.d., furosemide 20 mg daily, Tums 600 mg daily, Requip 1 mg t.i.d., carbamazepine 200 mg t.i.d., atenolol 50 mg b.i.d., omeprazole, atorvastatin 40 mg daily, fenofibrate 145 mg daily, ibuprofen 800 mg t.i.d., metformin 1000 mg b.i.d., aspirin 81 mg daily, Compazine p.r.n. ALLERGIES: No known drug allergies. SOCIAL HISTORY: Ongoing and regular cigarette smoker, but no alcohol use. REVIEW OF SYSTEMS: GENERAL: She has been feeling quite poorly for several days. EYES: Vision has been okay. ENT: Hearing okay, swallows okay. No mouth sores. ENDOCRINE: Positive for the diabetes. RESPIRATORY: She has had ongoing shortness of air with a little bit of wheezing. CARDIAC: A little bit of chest discomfort. No swelling. GASTROINTESTINAL: She has had diarrhea. GENITOURINARY: No burning, urinary frequency, or hematuria. MUSCULOSKELETAL: She has ongoing and chronic joint pain, difficulty getting around. SKIN: No skin rash. NEUROLOGIC: No seizure or stroke. She does have peripheral neuropathy. [address] [address] CONSULTATION Name: JEISON PAVON Room #: 204-P [facility].#: [id number] Admission: 03/18/19 Attend Phys: Long Salcido MD Discharge: 03/22/19 Date of : 48 Report #: [id number] PAST MEDICAL HISTORY: Also remarkable for carpal tunnel surgery. She has a history of ankylosing spondylitis with cervical myelopathy and had a cervical spine surgery done earlier this year. She has difficulty with use of her hands and legs and gets around with a walker and still has discoordination with the hands. She had a remote diagnosis of schizophrenia, which was incorrect. She, at one time, was on treatment for that, but has not been for 30 years. PHYSICAL EXAMINATION: GENERAL: This is a somewhat ill-appearing, somewhat anxious-appearing patient. SKIN: Otherwise, unremarkable. SKELETAL: Shows her to be well developed, well nourished: No obvious joint deformities. HEENT: Extraocular movements are full. Vision is intact. Hearing is intact. Mucous membranes are dry. NECK: Neck veins are flat. CHEST: Shows faint wheezing. HEART: Regular, but quite bradycardic with a pulse of 35. ABDOMEN: Soft and nontender. EXTREMITIES: Show no peripheral edema and the hands and feet are slightly cyanotic. LABORATORY DATA: Urinalysis showed a slightly concentrated urine. She did have 2+ protein, somewhat of a dirty specimen, but she did have pyuria and bacteriuria. Hemoglobin is 10.2, white count 11.9. Sodium 136, potassium 5.8, chloride 103, bicarbonate 22, BUN 54, creatinine 1.8. ASSESSMENT AND PLAN: 1. Acute kidney injury. Creatinine up to 1.8, baseline from previous hospitalization about 0.8. She is volume depleted. IV fluids are being given. We will be sending urine studies for completeness. IV fluids will include bicarbonate in the maintenance fluids. 2. Hyperkalemia. She has mild hyperkalemia, likely not contributing in a major way to her junctional heart rhythm, but this will be treated in any regard and we will go ahead and give her insulin and glucose as well as high-dose albuterol and the IV fluids, etc. 3. Diabetes mellitus. 4. History of ankylosing spondylitis with cervical spine surgery and myelopathy with difficulty walking. 5. Junctional bradycardia. She has been on the atenolol that is for mitral valve prolapse; may be contributing here, but she very well will need a pacemaker. <ELECTRONICALLY SIGNED> By: Wilfred Kelly MD 03/23/19 1103 1759 0037 Wilfred Kelly MD /nt
== END 2019-03-22 13:11 | disposition home or self-care (01) | DRG 871 ==
LOC: ER 14:00 → EROBS 16:57 → ICU 16:57 → 2N 03-20 14:14 → ENTRNSPT 03-22 13:00 → EDTRNSPTSTS 03-22 13:06 → 2N 03-22 13:11
PROVIDERS: Emergency Medicine; Internal Medicine; Internal Medicine Nephrology; Nurse Practitioner Family; ADMIT Hospitalist
DX: A41.9 Sepsis, unspecified organism (principal); N17.0 Acute kidney failure with tubular necrosis; I48.92 Unspecified atrial flutter; G95.9 Disease of spinal cord, unspecified; N39.0 Urinary tract infection, site not specified; E11.42 Type 2 diabetes mellitus with diabetic polyneuropathy; J44.9 Chronic obstructive pulmonary disease, unspecified; I10 Essential (primary) hypertension; F20.9 Schizophrenia, unspecified; K21.9 Gastro-esophageal reflux disease without esophagitis; E86.0 Dehydration; E87.5 Hyperkalemia; E86.9 Volume depletion, unspecified; R56.9 Unspecified convulsions; I49.5 Sick sinus syndrome; I48.91 Unspecified atrial fibrillation; M45.2 Ankylosing spondylitis of cervical region; D63.8 Anemia in other chronic diseases classified elsewhere; E83.42 Hypomagnesemia; I25.10 Atherosclerotic heart disease of native coronary artery without angina pectoris; F17.210 Nicotine dependence, cigarettes, uncomplicated; Z90.710 Acquired absence of both cervix and uterus; Z86.14 Personal history of Methicillin resistant Staphylococcus aureus infection; Z79.84 Long term (current) use of oral hypoglycemic drugs; Z79.82 Long term (current) use of aspirin; Z79.899 Other long term (current) drug therapy; Z82.49 Family history of ischemic heart disease and other diseases of the circulatory system; Z80.8 Family history of malignant neoplasm of other organs or systems; Z83.1 Family history of other infectious and parasitic diseases; D50.9 Iron deficiency anemia, unspecified
CPT/HCPCS: 10078; 10081

== ENCOUNTER 2019-05-22 13:56 | Emergency (ER) | payer OTHER ==
[~2019-05-22] VITALS: Ht 165.1 cm; Wt 65.8 kg
[~2019-05-22 13:56] MED LIST changes: +CARDIZEM CD 18180 M3 PO; +REQUIP 1 MG TABL1 M1 PO
[2019-05-22 14:19] LABS: ABSOLUTE NEUTROPHILS 4.2 thou/uL (1.4-8.2); BASOPHILS 3.1 % (0.0-2.0); EOSINOPHILS 2.1 % (0.0-3.0); HEMATOCRIT 33.1 % (37.0-47.0); LYMPHOCYTES 23.2 % (24.0-44.0); MCH 31.8 pg (26.0-34.0); MCHC 33.1 g/dL (28.0-37.0); MCV 96.1 fL (80.0-100.0); MONOCYTES 9.1 % (1.0-8.0); PLATELET COUNT 283 thou/uL (150-400); POLYS 62.5 % (36.0-66.0); RBC 3.45 mil/uL (4.20-5.00); WBC 6.7 thou/uL (4.0-11.0)
[2019-05-22 14:24] LABS: BE(vivo) -4.1 mmol/L (-2 to +3); HCO3 19.7 mmol/L (22.0-26.0); PCO2 31.7 mmHg (35.0-45.0); PO2 94.8 mmHg (80.0-100.0); pH 7.411 (7.360-7.450); sO2 97.4 % (92.0-98.0)
[2019-05-22 14:25] LABS: ANION GAP 8 mmol/L (7-16); BUN 37 mg/dL (7-18); CALCIUM 9.6 mg/dL (8.5-10.1); CHLORIDE 105 mmol/L (98-107); CO2 25 mmol/L (21-32); CREATININE 1.3 mg/dL (0.6-1.0); GLUCOSE 128 mg/dL (74-106); POTASSIUM 4.9 mmol/L (3.5-5.1); SODIUM 138 mmol/L (136-145)
[2019-05-22 14:33] LABS: MAGNESIUM 1.9 mg/dL (1.8-2.4); TROPONIN-I <0.06 ng/mL (<0.06)
[2019-05-22 17:19] VITALS: BP 139/68
--- NOTE | 2019-05-22 17:19 | EKG ---
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
== END 2019-05-22 17:22 | disposition home or self-care (01) ==
LOC: ER 13:56
PROVIDERS: Emergency Medicine
DX: R00.1 Bradycardia, unspecified (principal); E11.40 Type 2 diabetes mellitus with diabetic neuropathy, unspecified; I10 Essential (primary) hypertension; I25.10 Atherosclerotic heart disease of native coronary artery without angina pectoris; K21.9 Gastro-esophageal reflux disease without esophagitis; G89.29 Other chronic pain; F20.9 Schizophrenia, unspecified; G25.81 Restless legs syndrome; J44.9 Chronic obstructive pulmonary disease, unspecified; F17.210 Nicotine dependence, cigarettes, uncomplicated; Z90.89 Acquired absence of other organs; Z90.710 Acquired absence of both cervix and uterus

== ENCOUNTER 2019-06-21 20:26 | Emergency (ER) | payer OTHER ==
[~2019-06-21] VITALS: Ht 165.1 cm; Wt 65.8 kg
[2019-06-21 21:02] LABS: BASOPHILS 0.4 % (0.0-2.0); EOSINOPHILS 2.5 % (0.0-3.0); HEMATOCRIT 33.1 % (37.0-47.0); HEMOGLOBIN 11.2 gm/dL (12.0-15.0); LYMPHOCYTES 24.2 % (24.0-44.0); MCH 31.5 pg (26.0-34.0); MCHC 33.7 g/dL (28.0-37.0); MCV 93.5 fL (80.0-100.0); MONOCYTES 9.8 % (1.0-8.0); PLATELET COUNT 352 thou/uL (150-400); POLYS 63.1 % (36.0-66.0); RBC 3.54 mil/uL (4.20-5.00); RDW 13.7 % (10.5-14.5); WBC 7.8 thou/uL (4.0-11.0)
[2019-06-21 21:03] LABS: ANION GAP 11 mmol/L (7-16); BUN 24 mg/dL (7-18); CALCIUM 9.6 mg/dL (8.5-10.1); CHLORIDE 99 mmol/L (98-107); CO2 25 mmol/L (21-32); CREATININE 1.2 mg/dL (0.6-1.0); GLUCOSE 125 mg/dL (74-106); POTASSIUM 3.9 mmol/L (3.5-5.1); SODIUM 135 mmol/L (136-145)
[2019-06-21 21:13] LABS: ALBUMIN 3.3 g/dL (3.4-5.0); APTT 26.8 Seconds (24.5-32.8); MAGNESIUM 1.5 mg/dL (1.8-2.4); PROTIME 10.7 Seconds (9.3-11.4); SGOT 22 U/L (15-37); SGPT 9 U/L (30-65); TOTAL BILIRUBIN 0.3 mg/dL (<0.1-1.0); TOTAL PROTEIN 7.2 g/dL (6.4-8.2); TROPONIN-I <0.06 ng/mL (<0.06)
[2019-06-21] MEDS ORDERED: MAG-OXIDE400 MG PO (21:47)
[2019-06-21 22:15] VITALS: BP 148/73
--- NOTE | 2019-06-22 09:00 | EKG ---
[place] [address] [place] [address] ELECTROCARDIOGRAM REPORT Name: JEISON PAVON [id number] Admission: 06/21/19 Attend Phys: Discharge: 06/21/19 Date of : 48 Report #: [id number] THIS REPORT FOR: //name// 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
== END 2019-06-21 22:16 | disposition home or self-care (01) ==
LOC: ER 20:26
PROVIDERS: Emergency Medicine
DX: E83.42 Hypomagnesemia (principal); R00.2 Palpitations; I10 Essential (primary) hypertension; E11.40 Type 2 diabetes mellitus with diabetic neuropathy, unspecified; K21.9 Gastro-esophageal reflux disease without esophagitis; F20.9 Schizophrenia, unspecified; F17.210 Nicotine dependence, cigarettes, uncomplicated; Z90.89 Acquired absence of other organs; Z90.710 Acquired absence of both cervix and uterus

== ENCOUNTER 2019-06-23 11:33 | Inpatient (IN) | payer OTHER ==
[~2019-06-23] VITALS: Ht 165.1 cm; Wt 68.1 kg
[2019-06-23] VITALS (20 sets, daily range): BP systolic 72–136; BP diastolic 32–71
--- NOTE | ~2019-06-23 | P ---
[facility] [place] [address] PROCEDURE REPORT Name: JEISON PAVON Room #: 240-P ADM IN M.R.#: [id number] Admission: 06/23/19 Attend Phys: Shay Alvarenga MD Discharge: Date of : 48 Report #: [id number] THIS REPORT FOR: //name// CC: [facility] physician/PCP Shay Alvarenga PROCEDURE: Pacemaker. PREOPERATIVE DIAGNOSIS: Sick sinus syndrome. POSTOPERATIVE DIAGNOSIS: Sick sinus syndrome. HISTORY OF PRESENT ILLNESS: The patient is a 69-year-old with history of AFib and atrial flutter and sick sinus syndrome, who was admitted after having a near syncopal episode at home and was found to be in a junctional escape rhythm with evidence of sinus arrest. She is here for dual-chamber pacemaker implantation. ANESTHESIA: The patient underwent MAC anesthesia with no anesthesia related complications. DESCRIPTION OF PROCEDURE: The patient underwent informed consent. We discussed the details of the procedure including risks, which include but not limited to bleeding, infection, vascular damage, cardiac perforation and pneumothorax. She understood these risks and is willing to proceed. The patient was brought to EP laboratory in fasting and sedated state, prepped and draped in a sterile fashion. She underwent a venogram showing patency of left axillary vein and received IV vancomycin for antibiotic prophylaxis. Next, lidocaine was injected below the level of clavicle. Incision was made, pocket was created over the prepectoral fascia and access was obtained twice to left axillary vein using extrathoracic approach with sheaths positioned using the modified Seldinger technique. Next, leads were positioned in the right ventricular apex and right atrial appendage, both with adequate pacing and sensing thresholds. The leads were sutured to the prepectoral fascia using Ethibond suture. The device was connected. Tug tests were performed. The device is functioning normally. The pocket was irrigated with vancomycin and then the pocket was closed in 2 layers using 2-0 for the deep layer, 3-0 for the middle layer and surgical glue was placed to outer skin layer. The patient awoke neurologically and hemodynamically intact. No complications and no significant bleeding. The implanted pacemaker was a [employer], model #PJ3878, serial #[id number]. Atrial lead was a [employer] model #2088TC, 52 cm, serial #[id number] and the ventricular lead was a [employer], model #2088TC, 58 cm, serial #[id number]. The atrial lead demonstrated P-wave 2.8 millivolts, pacing impedance of 460 ohms and pacing threshold 0.75 volts at 0.4 milliseconds. RV lead demonstrated R-wave of 10.1 millivolts, pacing impedance of 510 ohms and the pacing threshold 0.5 volts at 0.4 milliseconds. The device was programmed to the DDDR 60-130 mode. [facility] [address] [place] [address] PROCEDURE REPORT Name: JEISON PAVON Room #: 240-P ADM IN M.R.#: [id number] Admission: 06/23/19 Attend Phys: Shay Alvarenga MD Discharge: Date of : 48 Report #: [id number] CONCLUSIONS: 1. Successful dual-chamber pacemaker implantation. 2. Satisfactory atrial and ventricular pacing and sensing thresholds. By: [id number] Shimon Harp MD /nt
--- NOTE | ~2019-06-23 | HC ---
[facility] [place] [address] CONSULTATION Name: JEISON PAVON Room #: [address] [place] [address] IN ..#: [id number] Admission: 06/23/19 Attend Phys: Shay Alvarenga MD Discharge: Date of : 48 Report #: [id number] THIS REPORT FOR: //name// CC: [facility] physician/PCP Shay Alvarenga DATE OF SERVICE: 06/23/2019 ELECTROPHYSIOLOGY CONSULTATION REASON FOR CONSULTATION: On the patient is sick sinus syndrome. HISTORY OF PRESENT ILLNESS: The patient is a 69-year-old with history of sick sinus syndrome, history of prior junctional rhythms as well as AFib, atrial flutter and coronary artery disease. She presents with frequent lightheaded spells that occur today. When she arrived to the Emergency Room, she was noted to be in a junctional escape rhythm with evidence of sinus arrest. This was not atrial fibrillation. She was started on a dopamine drip and her sinus rhythm has returned. She has got evidence of P-waves on her telemetry. She does report that she has been having increased urinary frequency, dysuria and foul smelling urine. There was concern that she may have urosepsis as well. REVIEW OF SYSTEMS: A 12-point review of systems was performed and was negative other than mentioned above. PAST MEDICAL HISTORY: Has been reviewed. SOCIAL HISTORY: Does not smoke. FAMILY HISTORY: Noncontributory. ALLERGIES AND MEDICATIONS: Have been reviewed and she is not on any AV umesh blocking agents. PHYSICAL EXAMINATION: VITAL SIGNS: Reviewed. GENERAL: No acute distress. HEENT: Oropharynx clear. NECK: Supple, no thyromegaly. HEART: Regular rate and rhythm. LUNGS: Clear to auscultation bilaterally. ABDOMEN: Soft, nontender, nondistended. EXTREMITIES: No clubbing, cyanosis, edema. DIAGNOSTIC STUDIES: Recent echo shows normal LV size and function. [facility] [address] [place] [address] CONSULTATION Name: JEISON PAVON Room #: 247-P [facility] IN R.#: [id number] Admission: 06/23/19 Attend Phys: Shay Alvarenga MD Discharge: Date of : 48 Report #: [id number] ASSESSMENT: Symptomatic bradycardia secondary to sick sinus syndrome. PLAN: The patient has possible urosepsis and will need to have this either ruled out or treated. We will await blood cultures. If blood cultures, which are negative, then we could proceed with dual chamber pacemaker implantation on Wednesday. I have discussed the details of the procedure including the risks, which include but not limited to bleeding, infection, vascular damage, cardiac perforation and pneumothorax. She understands these risks and is willing to proceed. I would recommend that she stay in the ICU on dopamine over the weekend to maintain a heart rate of 60 beats per minute. I do not think a temporary pacing wire will be required given the return of sinus rhythm and she does have a nice stable junctional escape rhythm. By: 1500 [id number] Shimon Harp MD /jhoan
[~2019-06-23 11:33] MED LIST changes: +MAG-OXIDE400 MG PO
[2019-06-23 12:18] LABS: ABSOLUTE NEUTROPHILS 6.1 thou/uL (1.4-8.2); BASOPHILS 0.5 % (0.0-2.0); EOSINOPHILS 1.6 % (0.0-3.0); HEMATOCRIT 29.8 % (37.0-47.0); LYMPHOCYTES 19.1 % (24.0-44.0); MCH 31.5 pg (26.0-34.0); MCHC 33.5 g/dL (28.0-37.0); MCV 93.9 fL (80.0-100.0); MONOCYTES 7.2 % (1.0-8.0); PLATELET COUNT 297 thou/uL (150-400); POLYS 71.6 % (36.0-66.0); RBC 3.17 mil/uL (4.20-5.00); RDW 13.4 % (10.5-14.5); WBC 8.5 thou/uL (4.0-11.0)
[2019-06-23 12:26] LABS: ANION GAP 5 mmol/L (7-16); BUN 25 mg/dL (7-18); CALCIUM 8.7 mg/dL (8.5-10.1); CHLORIDE 102 mmol/L (98-107); CO2 28 mmol/L (21-32); CREATININE 1.3 mg/dL (0.6-1.0); GLUCOSE 113 mg/dL (74-106); POTASSIUM 4.3 mmol/L (3.5-5.1); SODIUM 135 mmol/L (136-145)
[2019-06-23 12:28] LABS: INR 1.1; PROTIME 11.7 Seconds (9.3-11.4)
[2019-06-23 12:36] LABS: ALBUMIN 2.8 g/dL (3.4-5.0); SGOT 23 U/L (15-37); SGPT 12 U/L (30-65); TOTAL BILIRUBIN 0.2 mg/dL (<0.1-1.0); TOTAL PROTEIN 6.1 g/dL (6.4-8.2); TROPONIN-I <0.06 ng/mL (<0.06)
[2019-06-23 14:39] LABS: URINE BILIRUBIN NEGATIVE (Negative); URINE BLOOD NEGATIVE (Negative); URINE CLARITY CLEAR; URINE COLOR YELLOW; URINE GLUCOSE-RANDOM* NEGATIVE (Negative); URINE KETONES NEGATIVE (Negative); URINE NITRITE-REFLEX NEGATIVE (Negative); URINE PROTEIN (DIPSTICK) TRACE (Negative); URINE UROBILINOGEN 0.2 E.U./dl (0.2-1.0)
[2019-06-23 14:40] LABS: URINE LEUKOCYTES-REFLEX 3+ (Negative)
[2019-06-23 14:55] LABS: BACTERIA-REFLEX >30 Many /HPF (None Seen); CASTS None Seen /LPF (None Seen); CRYSTALS None Seen /LPF (None Seen); SQUAMOUS None Seen /LPF (0-3); URINE RBC None Seen /HPF (0-2); URINE WBC-REFLEX >25 Many /HPF (0-5)
--- NOTE | 2019-06-23 15:46 | EKG ---
[place] [address] [facility] 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 : 1950 Requested By: Robina Chery Order Number: [id number] MD: Mauri Ellis Measurements Intervals [place] Rate: 36 P: [place]: QRS: 93 QRSD: 93 T: 72 QT: 488 QTc: 378 Interpretive Statements Junctional bradycardia Right axis deviation Poor R wave progression Compared to ECG 06/21/2019 20:30:17 Junctional bradycardia is now present Electronically Signed On 06-23-2019 15:45:48 DIRECTOR OF COMMUNITY CENTER by Mauri Ellis [email or web address] <ELECTRONICALLY SIGNED> By: Mauri Ellis MD, [facility] 06/23/19 1545 1134 113 Mauri Ellis MD, FACC /EPI
[2019-06-24] VITALS (47 sets, daily range): BP systolic 86–146; BP diastolic 33–74
[2019-06-24 03:53] LABS: CALCIUM 8.9 mg/dL (8.5-10.1); CREATININE 1.1 mg/dL (0.6-1.0)
[2019-06-24 03:58] LABS: POTASSIUM 4.2 mmol/L (3.5-5.1)
[2019-06-24 04:11] LABS: CHOLESTEROL 124 mg/dL (<200); HDL CHOLESTEROL 28 mg/dL (>40); LDL CHOLESTEROL 50 mg/dL (<100); TC:HDL 4.4 Ratio (Not establshd); TRIGLYCERIDE 230 mg/dL (<150); VLDL 46 mg/dL (<40)
[2019-06-24 04:12] LABS: SERUM ASSESSMENT Clear
[2019-06-24 06:28] LABS: ABSOLUTE NEUTROPHILS 4.3 thou/uL (1.4-8.2); BASOPHILS 1.2 % (0.0-2.0); EOSINOPHILS 1.1 % (0.0-3.0); LYMPHOCYTES 18.9 % (24.0-44.0); MCHC 32.5 g/dL (28.0-37.0); MCV 95.5 fL (80.0-100.0); MONOCYTES 10.6 % (1.0-8.0); POLYS 68.2 % (36.0-66.0); RBC 2.51 mil/uL (4.20-5.00); RDW 13.1 % (10.5-14.5); WBC 6.2 thou/uL (4.0-11.0)
[2019-06-24 06:32] LABS: HEMOGLOBIN 7.8 gm/dL (12.0-15.0); PLATELET COUNT 219 thou/uL (150-400)
[2019-06-25] VITALS (39 sets, daily range): BP systolic 93–150; BP diastolic 46–103
[2019-06-25 06:03] LABS: MCH 30.9 pg (26.0-34.0); MCHC 32.6 g/dL (28.0-37.0); MCV 94.7 fL (80.0-100.0); RBC 3.59 mil/uL (4.20-5.00); RDW 13.5 % (10.5-14.5); WBC 10.2 thou/uL (4.0-11.0)
[2019-06-25 06:10] LABS: CALCIUM 9.4 mg/dL (8.5-10.1); CREATININE 0.8 mg/dL (0.6-1.0); MAGNESIUM 1.9 mg/dL (1.8-2.4); POTASSIUM 3.6 mmol/L (3.5-5.1)
[2019-06-25 06:11] LABS: HEMOGLOBIN 11.1 gm/dL (12.0-15.0)
[2019-06-26] VITALS (18 sets, daily range): BP systolic 110–160; BP diastolic 53–78
[2019-06-26 06:05] LABS: BASOPHILS 1.2 % (0.0-2.0); EOSINOPHILS 1.7 % (0.0-3.0); HEMATOCRIT 30.7 % (37.0-47.0); HEMOGLOBIN 10.4 gm/dL (12.0-15.0); LYMPHOCYTES 14.8 % (24.0-44.0); MCH 31.4 pg (26.0-34.0); MCHC 33.7 g/dL (28.0-37.0); MCV 93.2 fL (80.0-100.0); MONOCYTES 8.8 % (1.0-8.0); PLATELET COUNT 267 thou/uL (150-400); POLYS 73.5 % (36.0-66.0); RDW 13.6 % (10.5-14.5); WBC 8.2 thou/uL (4.0-11.0)
[2019-06-26 06:36] LABS: CALCIUM 9.8 mg/dL (8.5-10.1); CREATININE 0.9 mg/dL (0.6-1.0); POTASSIUM 3.6 mmol/L (3.5-5.1)
[2019-06-27] VITALS (8 sets, daily range): BP systolic 123–141; BP diastolic 64–73
[2019-06-27] MEDS ORDERED: KEFLEX500 M1 PO (08:58)
== END 2019-06-27 12:00 | disposition home or self-care (01) | DRG 242 ==
LOC: ER 11:33 → EROBS 13:00 → ICU 13:00
PROVIDERS: Nurse Practitioner; Physician Assistant; ADMIT Internal Medicine
PROC: 02H63JZ Insertion of Pacemaker Lead into Right Atrium, Percutaneous Approach (ICD-10-PCS; principal; 2019-06-23)
PROC: 0JH606Z Insertion of Pacemaker, Dual Chamber into Chest Subcutaneous Tissue and Fascia, Open Approach (ICD-10-PCS; principal; 2019-06-23)
PROC: 02HK3JZ Insertion of Pacemaker Lead into Right Ventricle, Percutaneous Approach (ICD-10-PCS; principal; 2019-06-23)
DX: I49.5 Sick sinus syndrome (principal); N17.0 Acute kidney failure with tubular necrosis; E44.0 Moderate protein-calorie malnutrition; N39.0 Urinary tract infection, site not specified; I48.92 Unspecified atrial flutter; E11.42 Type 2 diabetes mellitus with diabetic polyneuropathy; J44.9 Chronic obstructive pulmonary disease, unspecified; K21.9 Gastro-esophageal reflux disease without esophagitis; I25.10 Atherosclerotic heart disease of native coronary artery without angina pectoris; G89.4 Chronic pain syndrome; G25.81 Restless legs syndrome; N18.9 Chronic kidney disease, unspecified; I95.9 Hypotension, unspecified; I48.0 Paroxysmal atrial fibrillation; F20.9 Schizophrenia, unspecified; D63.8 Anemia in other chronic diseases classified elsewhere; E78.5 Hyperlipidemia, unspecified; B96.20 Unspecified Escherichia coli [E. coli] as the cause of diseases classified elsewhere; I12.9 Hypertensive chronic kidney disease with stage 1 through stage 4 chronic kidney disease, or unspecified chronic kidney disease; E11.22 Type 2 diabetes mellitus with diabetic chronic kidney disease; M51.36 Other intervertebral disc degeneration, lumbar region; M54.9 Dorsalgia, unspecified; F17.210 Nicotine dependence, cigarettes, uncomplicated; E86.0 Dehydration; Z90.710 Acquired absence of both cervix and uterus; Z80.8 Family history of malignant neoplasm of other organs or systems; Z83.79 Family history of other diseases of the digestive system; Z82.49 Family history of ischemic heart disease and other diseases of the circulatory system; Z68.25 Body mass index [BMI] 25.0-25.9, adult; Z79.899 Other long term (current) drug therapy
CPT/HCPCS: 10078; 10203; 62110; 62900; 70005

== ENCOUNTER 2019-07-07 12:41 | Emergency (ER) | payer OTHER ==
[~2019-07-07] VITALS: Ht 165.1 cm; Wt 65.8 kg
[~2019-07-07 12:41] MED LIST changes: +KEFLEX500 M1 PO
[2019-07-07 13:38] LABS: ABSOLUTE NEUTROPHILS 6.8 thou/uL (1.4-8.2); BASOPHILS 1.5 % (0.0-2.0); EOSINOPHILS 1.2 % (0.0-3.0); HEMATOCRIT 33.1 % (37.0-47.0); HEMOGLOBIN 11.1 gm/dL (12.0-15.0); LYMPHOCYTES 16.7 % (24.0-44.0); MCH 31.1 pg (26.0-34.0); MCHC 33.4 g/dL (28.0-37.0); MCV 93.1 fL (80.0-100.0); MONOCYTES 7.9 % (1.0-8.0); PLATELET COUNT 349 thou/uL (150-400); POLYS 72.7 % (36.0-66.0); RBC 3.56 mil/uL (4.20-5.00); RDW 13.7 % (10.5-14.5); WBC 9.4 thou/uL (4.0-11.0)
[2019-07-07 14:48] LABS: INR 1.9; PROTIME 20.1 Seconds (9.3-11.4)
[2019-07-07 15:51] LABS: URINE BILIRUBIN NEGATIVE (Negative); URINE BLOOD NEGATIVE (Negative); URINE CLARITY CLEAR; URINE COLOR YELLOW; URINE GLUCOSE-RANDOM* NEGATIVE (Negative); URINE KETONES NEGATIVE (Negative); URINE PROTEIN (DIPSTICK) NEGATIVE (Negative); URINE UROBILINOGEN 0.2 E.U./dl (0.2-1.0)
[2019-07-07 15:53] LABS: URINE LEUKOCYTES-REFLEX 3+ (Negative); URINE NITRITE-REFLEX POSITIVE (Negative)
[2019-07-07 16:33] LABS: ANION GAP 14 mmol/L (7-16); BUN 20 mg/dL (7-18); CALCIUM 8.6 mg/dL (8.5-10.1); CHLORIDE 104 mmol/L (98-107); CO2 24 mmol/L (21-32); GLUCOSE 80 mg/dL (74-106); MAGNESIUM 1.8 mg/dL (1.8-2.4); POTASSIUM 3.8 mmol/L (3.5-5.1); SODIUM 142 mmol/L (136-145); TROPONIN-I <0.06 ng/mL (<0.06)
[2019-07-07 16:46] LABS: SQUAMOUS 0-3 Few /LPF (0-3)
[2019-07-07 16:47] LABS: BACTERIA-REFLEX >30 Many /HPF (None Seen); CASTS None Seen /LPF (None Seen); CRYSTALS None Seen /LPF (None Seen); URINE RBC None Seen /HPF (0-2)
[2019-07-07 20:52] VITALS: BP 125/63
--- NOTE | 2019-07-08 10:47 | EKG ---
[place] [address] [facility] [place] [address] ELECTROCARDIOGRAM REPORT Name: JEISON PAVON [id number] Admission: 07/07/19 Attend Phys: Discharge: 07/07/19 Date of : 48 Report #: [id number] THIS REPORT FOR: //name// 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
== END 2019-07-07 20:53 | disposition home or self-care (01) ==
LOC: ER 12:41
PROVIDERS: Emergency Medicine
DX: I95.1 Orthostatic hypotension (principal); N39.0 Urinary tract infection, site not specified; R00.0 Tachycardia, unspecified; R42 Dizziness and giddiness; E11.42 Type 2 diabetes mellitus with diabetic polyneuropathy; J44.9 Chronic obstructive pulmonary disease, unspecified; K21.9 Gastro-esophageal reflux disease without esophagitis; I25.10 Atherosclerotic heart disease of native coronary artery without angina pectoris; G89.4 Chronic pain syndrome; G25.81 Restless legs syndrome; F17.210 Nicotine dependence, cigarettes, uncomplicated; Z79.82 Long term (current) use of aspirin; Z79.899 Other long term (current) drug therapy; Z90.89 Acquired absence of other organs

== ENCOUNTER → 2019-08-11 | Outpatient (CLI) | payer OTHER | LOC: SJCVCIMAG 11:30 | DX: Z51.81 Encounter for therapeutic drug level monitoring (principal); E11.9 Type 2 diabetes mellitus without complications; J44.9 Chronic obstructive pulmonary disease, unspecified; I25.10 Atherosclerotic heart disease of native coronary artery without angina pectoris; I10 Essential (primary) hypertension; E78.2 Mixed hyperlipidemia; Z95.0 Presence of cardiac pacemaker; Z79.01 Long term (current) use of anticoagulants ==

== ENCOUNTER → 2019-08-22 | Outpatient (CLI) | payer OTHER | LOC: SJCVC 10:56 | DX: Z51.81 Encounter for therapeutic drug level monitoring (principal); I10 Essential (primary) hypertension; I25.10 Atherosclerotic heart disease of native coronary artery without angina pectoris; E11.9 Type 2 diabetes mellitus without complications; J44.9 Chronic obstructive pulmonary disease, unspecified; E78.2 Mixed hyperlipidemia; Z79.01 Long term (current) use of anticoagulants; Z95.0 Presence of cardiac pacemaker ==

== ENCOUNTER → 2019-09-12 | Outpatient (CLI) | payer OTHER | LOC: SJCVC 10:51 | DX: Z51.81 Encounter for therapeutic drug level monitoring (principal); I10 Essential (primary) hypertension; I25.10 Atherosclerotic heart disease of native coronary artery without angina pectoris; E11.9 Type 2 diabetes mellitus without complications; E78.2 Mixed hyperlipidemia; J44.9 Chronic obstructive pulmonary disease, unspecified; Z79.01 Long term (current) use of anticoagulants; Z95.0 Presence of cardiac pacemaker ==

== ENCOUNTER → 2019-09-29 | Outpatient (CLI) | payer OTHER | LOC: SJCVC 11:33 | DX: Z51.81 Encounter for therapeutic drug level monitoring (principal); I10 Essential (primary) hypertension; I25.10 Atherosclerotic heart disease of native coronary artery without angina pectoris; E11.9 Type 2 diabetes mellitus without complications; E78.2 Mixed hyperlipidemia; J44.9 Chronic obstructive pulmonary disease, unspecified; Z79.01 Long term (current) use of anticoagulants; Z95.0 Presence of cardiac pacemaker ==

== ENCOUNTER → 2019-10-05 | Outpatient (CLI) | payer OTHER | LOC: SJCVC 10:23 | DX: Z51.81 Encounter for therapeutic drug level monitoring (principal); E11.9 Type 2 diabetes mellitus without complications; J44.9 Chronic obstructive pulmonary disease, unspecified; I25.10 Atherosclerotic heart disease of native coronary artery without angina pectoris; I10 Essential (primary) hypertension; E78.2 Mixed hyperlipidemia; Z95.0 Presence of cardiac pacemaker; Z79.01 Long term (current) use of anticoagulants ==

== ENCOUNTER → 2019-10-26 | Outpatient (CLI) | payer OTHER | LOC: SJCVC 10:32 | PROVIDERS: ATTEND Internal Medicine Cardiovascular Disease | DX: Z51.81 Encounter for therapeutic drug level monitoring (principal); I25.10 Atherosclerotic heart disease of native coronary artery without angina pectoris; I10 Essential (primary) hypertension; E11.9 Type 2 diabetes mellitus without complications; E78.00 Pure hypercholesterolemia, unspecified; Z79.01 Long term (current) use of anticoagulants ==

== ENCOUNTER → 2020-01-19 | Outpatient (CLI) | payer OTHER | LOC: SJCVCIMAG 09:26 | PROVIDERS: ATTEND Internal Medicine Cardiovascular Disease | DX: I08.1 Rheumatic disorders of both mitral and tricuspid valves (principal); I11.9 Hypertensive heart disease without heart failure; I25.10 Atherosclerotic heart disease of native coronary artery without angina pectoris; I48.0 Paroxysmal atrial fibrillation; I49.5 Sick sinus syndrome; R60.9 Edema, unspecified; E78.2 Mixed hyperlipidemia; J44.9 Chronic obstructive pulmonary disease, unspecified; E11.9 Type 2 diabetes mellitus without complications; F17.200 Nicotine dependence, unspecified, uncomplicated; Z79.899 Other long term (current) drug therapy; Z95.0 Presence of cardiac pacemaker ==

== ENCOUNTER → 2021-05-09 | Outpatient (CLI) | payer OTHER | LOC: SJCVC 14:48 | PROVIDERS: ATTEND Internal Medicine Cardiovascular Disease | DX: R94.31 Abnormal electrocardiogram [ECG] [EKG] (principal); I49.5 Sick sinus syndrome; I48.92 Unspecified atrial flutter; I10 Essential (primary) hypertension; R60.9 Edema, unspecified; E78.2 Mixed hyperlipidemia; F17.200 Nicotine dependence, unspecified, uncomplicated; D64.9 Anemia, unspecified; J44.9 Chronic obstructive pulmonary disease, unspecified; E11.9 Type 2 diabetes mellitus without complications; E78.5 Hyperlipidemia, unspecified; E11.40 Type 2 diabetes mellitus with diabetic neuropathy, unspecified; M19.90 Unspecified osteoarthritis, unspecified site; Z95.0 Presence of cardiac pacemaker; Z79.01 Long term (current) use of anticoagulants; Z79.899 Other long term (current) drug therapy; Z88.8 Allergy status to other drugs, medicaments and biological substances ==